=== PATIENT | female | born 1985 | race Hispanic/Latino ===

== ENCOUNTER 2017-08-05 21:46 | Emergency (ER) | payer OTHER ==
[2017-08-05 23:13] LABS: Bilirubin Negative (Negative); Blood, Urine Small (Negative); Clarity CLEAR (Clear); Glucose, Urine (Dipstick) Negative (Negative); Leukocyte Small (Negative); Nitrite Negative (Negative); Protein, Urine (Dipstick) Negative (Neg-Trace); Specific Gravity, Urine 1.015 (1.002-1.036); Urobilinogen 0.2 mg/dL (0.2-1.0)
[2017-08-05 23:16] LABS: Bacteria/HPF None Seen HPF (None Seen); Hyaline Casts/LPF 0-3 HYALINE CAST LPF (0-3 Hyaline); Pathc Cast-AUWi Flag 0.43 (0-2.49); Squamous Epithelial 0-3 HPF (0-3); WBC/HPF 21-50 HPF (0-3)
[2017-08-06 00:04] LABS: Pregnancy Test - Urine (BHCG) Negative (Negative); Pregu Control Background? CLEAR/WHITE (CLR/WHITE); Pregu Control Bar Appear? YES (CONTROL BAR); Specific Gravity 1.015 (1.002-1.036)
== END 2017-08-06 00:24 | disposition home or self-care (01) ==
LOC: ERS 21:46
DX: N30.00 Acute cystitis without hematuria (principal); F41.9 Anxiety disorder, unspecified
CPT/HCPCS: 81003; 81015; 81025; 87086; 99283

== ENCOUNTER 2018-02-27 09:26 | Outpatient (CLI) | payer MEDICAID ==
--- NOTE | 2018-02-27 12:41 | ULT ---
OB ULTRASOUND COMPLETE: History: 32-year-old female for size and dates. 21-week gestation . FINDINGS: The lower uterine segment is very poorly seen, probably related to an empty bladder. Single viable intrauterine fetus in breech presentation. The placenta is anterior. Amniotic fluid is within normal limits. heart rate 150 beats/minute. anatomy: Visualized brain, four chamber heart, three vessel cord, stomach, bladder, kidneys, spine and e xtremity regions are unremarkable. biometry: BPD 5.5 cm 22 weeks 6 days HC 20.1 cm 22 weeks 2 days AC 19.7 cm 24 weeks 3 days FL 4.0 cm 22 weeks 0 days IMPRESSION: Single viable intrauterine fetus at 23 weeks 1 day. NAIF 06-25-18. Estimated weight 680 grams. POS: [facility]
== END 2018-02-27 09:27 | disposition home or self-care (01) ==
LOC: BICULT 09:26
PROVIDERS: ATTEND Family Medicine
DX: Z34.92 Encounter for supervision of normal pregnancy, unspecified, second trimester (principal); Z3A.21 21 weeks gestation of pregnancy
CPT/HCPCS: 76805

== ENCOUNTER 2018-05-12 11:27 | Inpatient (IN) | payer OTHER ==
[2018-05-12 12:10] VITALS: BMI 28.1
--- NOTE | 2018-05-12 12:27 | PDOC.LDHP ---
Labor and Delivery H&P Chief complaint: other (ROMERO, blurred vision at 33 weeks) HPI: Patient of Dr Sahara Castillo Loc: L&D triage CC: ROMERO, blurred vision HPI: 33 yo at 33 weeks 5 days with above complaints. No VB, no HX PIH in past. Good FM. Possible GERD sxs Review of Systems: Completed and as per HPI Current gestational age (weeks): 33 (5 days) Dating criteria: last menstrual period Grav: 5 Para: 3 OB History Details: X 3 Current complications: none Abnormal US findings: No Current medications: pre-goldie vitamins Previous surgical history: none Allergies/Adverse Reactions: Allergies Allergy/AdvReac Type Severity Reaction Status Date / Time cephalexin [Cephalexin] Allergy Mild Rash Verified 05/12/18 12:10 - Physical Exam Vital signs reviewed and normal: yes (130/97;123/95) General: NAD Heart: RRR Lungs: CTAB Abdomen: gravid FHT: category 1 - Assessment 33 weeks 5 days possible PIH with symptoms. Due to EGA, we will do serial BPs, check UProtein to Cr ration; check labs. Ordered sono for EFW in case we need to deliver. Will need steroids for FLM if delivery a consideration. Tylenol for ROMERO.
[2018-05-12] MEDS ORDERED: Acetaminophen 500 MG TAB PO SCH (12:30)
[2018-05-12 13:05] LABS: #Eosinphils 0.1 thou/uL (0.0-0.7); #Lymphocytes 1.9 thou/uL (1.20-3.40); #Monocytes 0.6 thou/uL (0.11-0.59); %Basophils 0.5 % (0.0-1.0); %Eosinophils 0.9 % (0.0-10.0); %Lymphocytes 22.4 % (21.0-51.0); %Monocytes 6.5 % (0.0-10.0); %Neutrophils 69.7 % (42.0-75.0); Hemoglobin 12.5 g/dL (12.0-16.0); Mean Corpuscular HGB CONC 35.5 g/dL (32.0-36.0); Mean Corpuscular Hemoglobin 31.2 pg (27.0-31.0); Mean Corpuscular Volume 87.9 fL (78.0-98.0); Mean Platelet Volume 9.4 fL (7.4-10.4); Platelet Count 188 thou/uL (130-400); RBC Distribution Width 11.7 % (11.5-14.5); White Blood Cell (WBC) Count 8.5 thou/uL (4.8-10.8)
[2018-05-12] MEDS ORDERED: HYDROcodone/Acetaminophen 5/325 mg Tablet PO PRN ×2 (13:12)
[2018-05-12] MEDS ORDERED: NS / Oxytocin 40 units/1000ml 1,000 ML IV PRN (13:12)
[2018-05-12] MEDS ORDERED: Butorphanol Tartrate 1 MG/ML VIAL SLOW IVP PRN (13:12)
[2018-05-12] MEDS ORDERED: Promethazine HCl 25 MG/ML VIAL IM PRN (13:12)
[2018-05-12] MEDS ORDERED: Ibuprofen 800 MG TAB PO PRN (13:12)
[2018-05-12] MEDS ORDERED: Lidocaine 1% (PF) 30 ML VIAL SC PRN (13:12)
[2018-05-12] MEDS ORDERED: Calcium Gluc 4.6 MEQ/10 ML (100 MG/ML) SLOW IVP PRN (13:14)
[2018-05-12] MEDS ORDERED: NIFEdipine 10 MG CAP PO SCH (13:15)
[2018-05-12] MEDS ORDERED: Magnesium Sulfate 20 GM/WATER 500 ML BAG IVPB SCH (13:15)
[2018-05-12] MEDS ORDERED: Penicillin G Potassium 5 MILL.UNITS in Sodium Chloride 0.9% 100 ML IVPB SCH (13:15)
--- NOTE | 2018-05-12 13:34 | PDOC.EVN ---
Event Note - Event Note Event Note: H&P Dictated I will not give Mag Sulfate right now but will attempt BP control with procardia (10 mg ordered). Mag during induction, PCN during induction. D/W nurse charge rn and Dr Rees with Neonatology
[2018-05-12 13:40] LABS: ALT (SGPT) Less than 7 U/L (8-55); AST (SGOT) 14 U/L (5-34); Alkaline Phosphatase 127 U/L (40-150); Anion Gap 9 mmol/L (10-20); BUN (Urea Nitrogen) 9 mg/dL (7.0-18.7); Bilirubin, Total 0.6 mg/dL (0.2-1.2); Calc. Creatinine Clearance 147 mL/min (70-130); Calcium 8.6 mg/dL (7.8-10.44); Carbon Dioxide 24 mmol/L (22-29); Chloride 107 mmol/L (98-107); Estimated GFR-MDRD Greater than 90; Globulin 3.2 g/dL (2.4-3.5); Glucose 73 mg/dL (70-105); Potassium 4.2 mmol/L (3.5-5.1); Protein, Total 6.2 g/dL (6.0-8.3); Sodium 136 mmol/L (136-145)
--- NOTE | 2018-05-12 13:55 | PDOC.EVN ---
Event Note - Event Note Event Note: BP last 140/90s...following closely
[2018-05-12] MEDS: Lactated Ringer's 1,000 ML IV SCH (14:08)
[2018-05-12 14:30] LABS: Creatinine, Urine 205.17 mg/dL (47-110)
[2018-05-12 14:31] LABS: Hemoglobin 12.2 g/dL (12.0-16.0); Mean Corpuscular HGB CONC 34.5 g/dL (32.0-36.0); Mean Corpuscular Hemoglobin 30.1 pg (27.0-31.0); Mean Corpuscular Volume 87.4 fL (78.0-98.0); Mean Platelet Volume 9.2 fL (7.4-10.4); Platelet Count 210 thou/uL (130-400); RBC Distribution Width 11.7 % (11.5-14.5); Red Blood Cell (RBC) Count 4.05 mill/uL (4.20-5.40); White Blood Cell (WBC) Count 10.2 thou/uL (4.8-10.8)
--- NOTE | 2018-05-12 14:36 | PDOC.EVN ---
Event Note - Event Note Event Note: After oral nifedipine, maternal tachycardia noted to 120s...nifedipine effect. I will bive labetolol 10mg SIVP x 1 now for maternal HR affect. Cervical exam pending. Steroids pending
--- NOTE | 2018-05-12 14:41 | HP ---
TIME OF EVALUATION: 1323 hours. LOCATION: Labor and Delivery. CHIEF COMPLAINT: The patient here for headache and "blurred vision." This is the patient of Dr. Alexi Ramirez. Please note that this patient also has a hand written H and P in the physical chart as well. HISTORY OF PRESENT ILLNESS: In brief, this is a 33-year-old , 5, para 3 with 3 prior vaginal deliveries, this is with a new partner, who is currently at 33 weeks and 5 days, who comes to Labor and Delivery with complaint of headache and blurred vision today. She has good movement, no vaginal bleeding, and denies a history of high blood pressure in the past pregnancies or chronic hypertension. She states her blood pressures outside of are sometimes "borderline" but she does not know the number range. She has never taken medication. REVIEW OF SYSTEMS: Complete review of systems was done and is otherwise negative unless specified in the HPI. ALLERGIES: TO KEFLEX, WHICH GIVES HER A RASH. PAST MEDICAL HISTORY: Negative. PAST SURGICAL HISTORY: Noncontributory. SOCIAL HISTORY: Negative for alcohol, tobacco, or drug use. PHYSICAL EXAMINATION: VITAL SIGNS: The patient's blood pressures are 160/100 and then 170/100. Initial blood pressure was 138/97. GENERAL: Clinically, she is in no acute distress. PELVIC: Currently deferred as ultrasound was being performed when I was doing the interview. Ultrasound revealed the baby in a cephalic presentation with an anterior fundal placenta. Fluid is grossly normal. Estimated weight is about 2100 g. heart tones are in the 130s to 140s and they are category 1. Contractions are rare on tocodynamometer. ASSESSMENT: This is a 33-year-old, , G5, P3 with 3 prior vaginal deliveries (her second delivery was born , but her other two deliveries were born on time). She is currently at 33 weeks and 5 days with severe range of blood pressures and symptoms. PLAN: 1. I have ordered an ultrasound and the results are as above. 2. I have ordered a CBC, CMP, urine protein to creatinine ratio. 3. I have requested neonatology to come and evaluate the patient as she is under 34 weeks. 4. I have verbally talked to Dr. Sawant and given report myself. 5. Based on her blood pressure elevation of greater than 160, I have ordered nifedipine p.o. per ACOG protocol. 6. I have discussed with the patient the need for steroid injection for lung maturity in accordance with ACOG protocol. 7. I have discussed with the patient that we will administer steroids, give her antihypertensive medications to stabilize her pressure, and we will likely do an induction after 1 or 2 courses of steroids. 8. To prevent delay, I have chosen 12 hours of steroid administration instead of 24 hours. 9. We will continue with blood pressure medication for blood pressure control with the nifedipine protocol defaulting to the labetalol protocol, per ACOG, if necessary. 10. All questions answered and the patient is aware. 11. I have also ordered a TSH and a urine tox screen, although I do not anticipate illicit substances being a contributing factor here. The patient is aware that we have ordered a urine tox as part of our routine evaluation. Job ID: [id number]
[2018-05-12] MEDS ORDERED: Labetalol HCl 100 MG/20 ML VIAL SLOW IVP SCH (14:45)
[2018-05-12 15:21] LABS: Syphilis Antibody Nonreactive (Nonreactive); Syphilis Antibody Index 0.07 S/CO (<1.00 Non-Reactive)
--- NOTE | 2018-05-12 15:29 | ULT ---
OB ULTRASOUND: Comparison: None. History: female with induced hypertension. Technique: Multiplanar grayscale and color doppler images were obtained in a transabdominal ult rasound. FINDINGS: There is a single live intrauterine with heart rate of 145 beats/minute. A survey was performed which was limited secondary to the patient's age. The intracranial structures were difficu lt to visualize. The heart, stomach, kidneys, vocal cord, vocal cord insertion, spine, bladder, face, and extremities were normal. The fetus is in cephalic presentation. Weight of the fetus is 2117 gram s. Average age of the fetus based off today's examination is 33 weeks 6 days. The following measureme nts were taken: BPD 8.59 cm 34 weeks 4 days HC 30.87 cm 34 weeks 3 days AC 28.47 cm 32 weeks 3 days FL 6.43 cm 33 weeks 1 day LAURENCE is 9.8 cm which is normal. The placenta is anterior/fundal in location without evidence of placen ta previa. The cervical is normal in length. IMPRESSION: Single live intrauterine with estimated age of 33 weeks 6 days. POS: [facility]
[2018-05-12 15:34] LABS: HBSAg Index 0.19 S/CO (0-0.99); HIV (1/2) Antibody/Antigen Non-Reactive (NonReactive); HIV 1/2 INDEX 0.06 S/CO (<1.00); Hep B Surf Ag Non-Reactive S/CO (NonReactive); Thyroid Stimulating Hormone 0.8269 uIU/mL (0.35-4.94)
--- NOTE | 2018-05-12 15:37 | PDOC.EVN ---
Event Note - Event Note Event Note: Patient better after labetolol; cx //high
[2018-05-12] MEDS: Betamet Acet/Betamet Na Ph 30 MG/5 ML VIAL IM SCH (15:46)
[2018-05-12] MEDS: Penicillin G 2.5 MILL.units 2.5 MILL.UNITS in Premix Bag 1 BAG IVPB SCH ×2 (18:11→22:20)
--- NOTE | 2018-05-13 00:55 | PDOC.EVN ---
Event Note - Event Note Event Note: BPs nonsevere... second celestone will be today 05/13 at 1530 or so. Then allow for steroid benefit.
[2018-05-13] MEDS: Lactated Ringer's 1,000 ML IV SCH ×3 (01:00→23:37)
[2018-05-13] MEDS: Acetaminophen 500 MG TAB PO PRN (01:00)
--- NOTE | 2018-05-13 06:31 | PDOC.LDPN ---
Labor & Delivery Progress Note - Objective Abnormal vital signs: BPs nonsevere and range from 120/80s to 140/90s General: NAD Uterine fundus: non tender SVE: was 1 cm yesterday FHT: category 1 [place] contractions every: rare - Assessment (1) Preeclampsia Code(s): O14.90 - UNSPECIFIED PRE-ECLAMPSIA, UNSPECIFIED TRIMESTER Current Visit: Yes Status: Acute Plan: continue plan of care (second celestone will be today; will need PCN if labors. Mag for seizure prophylaxis in labr. For now, continue expectant care. Will likely have induction after steroid benefit (34 weeks induction). Currebtly 33 weeks 6 days)
[2018-05-13] MEDS: Betamet Acet/Betamet Na Ph 30 MG/5 ML VIAL IM SCH ×4 (06:48→23:44)
[2018-05-13] MEDS: Penicillin G 2.5 MILL.units 2.5 MILL.UNITS in Premix Bag 1 BAG IVPB SCH ×3 (06:49→23:37)
[2018-05-14] MEDS: Betamet Acet/Betamet Na Ph 30 MG/5 ML VIAL IM SCH (02:17)
[2018-05-14] MEDS ORDERED: Calcium Carbonate 500 MG ChewTAB PO SCH (02:30)
[2018-05-14] MEDS ORDERED: Mag-Al Plus 1200 MG/1200 MG/120 MG/30 ML UDCUP PO PRN (03:29)
--- NOTE | 2018-05-14 08:22 | PRG ---
DATE OF SERVICE: 05/14/2018 ANTEPARTUM PROGRESS NOTE SUBJECTIVE: The patient is a 33-year-old, G5, P3 female with an intrauterine at 34 weeks' gestation today, who was admitted with concerns of severe PIH. Her blood pressures on initial evaluation were in the severe range, but quickly we responded to medication intervention and has since remained in the mild range. She is now hospital day 3, status post steroids. The patient reports that she is feeling well this morning. She denies headache, chest pain, shortness of breath, or right upper quadrant pain. She is tolerating a diet. Lab work on initial evaluation was only significant with an intermediate mlstnkt-xe-qdqsjxmsnm ratio 0.23. OBJECTIVE: VITAL SIGNS: Have been reviewed and have had blood pressures in the mild range this morning and yesterday with the exception of a single severe pressure around 2 o'clock in 163 systolic. The remainder of her vital signs are all within normal limits. GENERAL: She appears to be in no acute distress. She is alert and oriented, cooperative and pleasant to interact with. LUNGS: Clear. ABDOMEN: Soft. EXTREMITIES: Nontender. Minimal edema. She has 2+ DTRs. No clonus. ASSESSMENT AND PLAN: The patient is hospital day 3 with PIH. The patient will continue in-house blood pressure observation for signs of worsening disease. She has not developed repetitive severe pressures at this time, but has had an isolated severe pressure yesterday and a few at the time of admission. Job ID: [id number]
--- NOTE | 2018-05-14 08:43 | PDOC.LDPN ---
Labor & Delivery Progress Note - Objective Vital signs reviewed and normal: yes Abnormal vital signs: BPs are 130-140/80s General: NAD Uterine fundus: non tender - Assessment (1) Preeclampsia Code(s): O14.90 - UNSPECIFIED PRE-ECLAMPSIA, UNSPECIFIED TRIMESTER Current Visit: Yes Status: Acute Plan: continue plan of care (Admitted 05/12 for preeclampsia with initially severe BPs, staeroids given and will be 48 hrs after first injection today at 1600. As BPs are not in severe range, we discussed (at bedside, along with Flakita - ras RN) that we can continue in-house observation for now as BPs have responded. EGA today is 34 weeks. If induced, would need Mag for SZ prophylaxis and PCN due to EGA)
[2018-05-14] MEDS: Famotidine 20 MG TAB PO SCH ×2 (09:04→21:01)
--- NOTE | 2018-05-14 12:51 | PDOC.EVN ---
Event Note - Event Note Event Note: 34 weeks Stable preeclampsia OK for floor transfer...steroid benefit will be this pm at 1600 Expectant management for now.
[2018-05-14] MEDS ORDERED: Docusate 100 MG CAP PO PRN (12:54)
--- NOTE | 2018-05-15 00:30 | PDOC.EVN ---
Event Note - Event Note Event Note: HD 3 Admitted 05/12/18 EGA: 34 weeks 1 day S/P Celestone S. Doing well, no complaints. Good FM O. BPs have been normal with max systolic 136 yesterday 05/14 at 1200 Physical: NAD Ut Soft, NT A/P: PIH at 34 weeks 1 day with non-severe BPs currently. We will monitor in- house today. If BPs stay in mild range we may DC home tomorrow 05/16/18 with frequent BP checks.
--- NOTE | 2018-05-15 08:05 | PDOC.EVN ---
Event Note - Event Note Event Note: BPs reviewed with oncoming ...flako and selvin. Prob dsc tomorrow
[2018-05-15] MEDS: Famotidine 20 MG TAB PO SCH ×2 (09:46→21:06)
[2018-05-15] MEDS: Prenatal Vitamin 1 TAB PO SCH (09:46)
--- NOTE | 2018-05-15 19:26 | PRG ---
DATE OF SERVICE: 05/15/2018 SUBJECTIVE: This is a 33-year-old white Maltese female, G5, P3, who presented with headache, blurred vision, and swelling. She was admitted for [facility]. She was placed at bedrest. Since admission, she has received steroids. She also had an ultrasound with a BPP of 8/8 and an NST 2/2. She has lost significant weight since she has been here as well as her leg swelling has completely resolved. Her blood pressures have also returned to baseline. OBJECTIVE: VITAL SIGNS: Temperature 97.9, pulse 53, respirations 24, blood pressure 133/66 and 128/59. HEART: Regular rate and rhythm. LUNGS: Clear. ABDOMEN: Soft. EXTREMITIES: With no edema. 1+ DTRs. ASSESSMENT: 1. 34 and 1 weeks intrauterine . 2. induced hypertension with urine protein creatinine ratio 0.23. 3. Celestone given on 05/12 and 05/13. PLAN: 1. Possible discharge in a.m. 2. Followup appointment and twice weekly. 3. 37-week induction if the patient's blood pressure remains stable. 4. Mag therapy for seizure prophylaxis at delivery. 5. Precautions given to the patient to return to the office or to the hospital if symptoms return. Job ID: [id number]
[2018-05-15] MEDS: Acetaminophen 500 MG TAB PO PRN (19:29)
[2018-05-15] MEDS ORDERED: Sodium Chloride 0.9% 20 ML ONE (19:30)
[2018-05-16] MEDS: Famotidine 20 MG TAB PO SCH (09:04)
[2018-05-16] MEDS: Prenatal Vitamin 1 TAB PO SCH (09:04)
[2018-05-16] MEDS ORDERED: Sodium Chloride 0.9% 500 ML IV SCH (11:45)
[2018-05-16 11:53] VITALS: BP 137/77; TEMP 98
[2018-05-16] MEDS: Acetaminophen 500 MG TAB PO PRN (12:22)
--- NOTE | 2018-05-16 14:55 | PRG ---
DATE OF SERVICE: 05/16/2018 SUBJECTIVE: Last night, the patient had irregular contractions, which kept her awake. This morning, she is retired. She had a headache earlier, but none now. She has had no appetite until now. OBJECTIVE: VITAL SIGNS: Blood pressure 145/66, temperature 97.8, pulse 53, respirations 20, pulse ox 96. HEART: Regular rate and rhythm. LUNGS: Clear. ABDOMEN: Soft. EXTREMITIES: No edema. DTRs 1+. LABORATORY DATA: None. ASSESSMENT: 1. 34 weeks and 2 days intrauterine . 2. -induced hypertension with a urine ckmtakc-tn-miwdepzvvy ratio 2.23. 3. Celestone given on 05/12 and 05/13. PLAN: 1. The patient is eating breakfast at this time. 2. Encourage hydration. 3. NST today. 4. If the patient feels better this afternoon, plan to discharge home. Job ID: [id number]
== END 2018-05-16 14:45 | disposition home or self-care (01) | DRG 833 ==
LOC: L&D/OP 11:27 → L&D 18:19 → 3SW 05-14 17:03
PROVIDERS: ADMIT Obstetrics & Gynecology; ATTEND Family Medicine
DX: O14.13 Severe pre-eclampsia, third trimester (principal); Z3A.33 33 weeks gestation of pregnancy
CPT/HCPCS: 36415; 76805; 80053; 82570; 84156; 84443; 85025; 86780; 86850; 86900; 86901; 87340; 87389; 99285

== ENCOUNTER 2018-05-16 21:58 | Inpatient (IN) | payer OTHER ==
[~2018-05-16 21:58] MED LIST: Bupivacaine PF 0.5% 30 ML VIAL ONE
[2018-05-16 22:24] VITALS: BMI 28.1
[2018-05-16] MEDS ORDERED: Acetaminophen 500 MG TAB PO PRN (22:26)
[2018-05-16] MEDS ORDERED: NS / Oxytocin 40 units/1000ml 1,000 ML IV PRN (22:26)
[2018-05-16] MEDS ORDERED: Promethazine HCl 25 MG/ML VIAL IM PRN (22:26)
[2018-05-16] MEDS ORDERED: Lidocaine 1% (PF) 30 ML VIAL SC PRN (22:26)
[2018-05-16] MEDS ORDERED: Butorphanol Tartrate 1 MG/ML VIAL SLOW IVP PRN (22:26)
[2018-05-16] MEDS ORDERED: Ondansetron PF 4 MG/2 ML Vial IVP PRN (22:26)
[2018-05-16] MEDS ORDERED: Labetalol HCl 100 MG/20 ML VIAL SLOW IVP PRN (22:40)
[2018-05-16] MEDS: Lactated Ringer's 1,000 ML IV SCH (22:50)
--- NOTE | 2018-05-16 23:05 | PDOC.LDHP ---
Labor and Delivery H&P Chief complaint: other (elevated BPs and headache) HPI: 33 y/o at 34w2d who was discharged home today returns with severe range BPs at home and ROMERO not improved with rest and Tylenol. Denies VB, LOF, ctx, or other concerns. +FM ROS neg for HEENT, cv, pulm, gi, gu, neuro, psych, skin, musculoskeletal or constitutional symptoms other than mentioned above. Current complications: gestational hypertension Past Medical History: None Current medications: pre- vitamins Previous surgical history: none Allergies/Adverse Reactions: Allergies Allergy/AdvReac Type Severity Reaction Status Date / Time cephalexin [Cephalexin] Allergy Mild Rash Verified 05/12/18 12:10 nifedipine [From Procardia] Allergy Mild Nausea Verified 05/16/18 22:18 Social history: none - Physical Exam Abnormal vital signs: Severe range BPs General: NAD, resting Lungs: nonlabored breathing Abdomen: gravid Extremeties: no edema (reflexes 2+) FHT: category 1 (130s, mod variability, + accels, no decels) [place] contractions every: none - Assessment Severe range BPs. No dx of preeclampsia at this point. - Plan -: Discussed patient Dr. Ramirez (her OB). Will admit for hydration, bed rest, treat headache and BPs. Has already received celestone on last admission. Continue to monitor.
[2018-05-16 23:23] LABS: Hemoglobin 11.3 g/dL (12.0-16.0); Mean Corpuscular HGB CONC 35.7 g/dL (32.0-36.0); Mean Corpuscular Hemoglobin 31.1 pg (27.0-31.0); Mean Platelet Volume 10.3 fL (7.4-10.4); Platelet Count 168 thou/uL (130-400); RBC Distribution Width 11.8 % (11.5-14.5); Red Blood Cell (RBC) Count 3.63 mill/uL (4.20-5.40); White Blood Cell (WBC) Count 9.6 thou/uL (4.8-10.8)
[2018-05-16] MEDS ORDERED: Metoclopramide HCl 10 MG/2 ML VIAL IVP PRN (23:29)
[2018-05-16] MEDS ORDERED: diphenhydrAMINE 50 MG/ML VIAL IVP PRN (23:30)
[2018-05-16 23:37] LABS: ALT (SGPT) 14 U/L (8-55); AST (SGOT) 18 U/L (5-34); Alkaline Phosphatase 126 U/L (40-150); Anion Gap 12 mmol/L (10-20); BUN (Urea Nitrogen) 11 mg/dL (7.0-18.7); Bilirubin, Total 0.4 mg/dL (0.2-1.2); Calc. Creatinine Clearance 142 mL/min (70-130); Calcium 8.8 mg/dL (7.8-10.44); Carbon Dioxide 22 mmol/L (22-29); Chloride 107 mmol/L (98-107); Estimated GFR-MDRD Greater than 90; Globulin 2.6 g/dL (2.4-3.5); Glucose 88 mg/dL (70-105); Protein, Total 5.6 g/dL (6.0-8.3); Sodium 137 mmol/L (136-145)
[2018-05-16] MEDS ORDERED: Calcium Gluc 4.6 MEQ/10 ML (100 MG/ML) SLOW IVP PRN (23:37)
[2018-05-16 23:40] LABS: Creatinine, Urine 36.65 mg/dL (47-110)
[2018-05-16] MEDS ORDERED: Magnesium Sulfate 20 gm/500 ml 20 GM/500 ML BAG ONE (23:41)
[2018-05-16] MEDS ORDERED: Magnesium Sulfate 20 GM/WATER 500 ML BAG IVPB SCH (23:45)
--- NOTE | 2018-05-16 23:50 | PDOC.EVN ---
Event Note - Event Note Event Note: Protein creatinine ratio 0.52 giving diagnosis of preeclampsia with severe features. Will start cytotec induction and magnesium.
[2018-05-16 23:54] LABS: Syphilis Antibody Nonreactive (Nonreactive); Syphilis Antibody Index 0.06 S/CO (<1.00 Non-Reactive)
[2018-05-16] MEDS: Magnesium Sulfate 20 gm/500 ml 20 GM/500 ML BAG IVPB SCH (23:54)
[2018-05-17] MEDS ORDERED: Misoprostol 100 MCG TAB VAG SCH
[2018-05-17 00:12] LABS: HBSAg Index 0.18 S/CO (0-0.99); Hep B Surf Ag Non-Reactive S/CO (NonReactive)
[2018-05-17] MEDS ORDERED: Penicillin G Potassium 5 MILL.UNITS in Sodium Chloride 0.9% 100 ML IVPB SCH (00:15)
[2018-05-17] MEDS ORDERED: NS w/ Oxytocin 10 units 500 ML IV SCH (00:15)
[2018-05-17] MEDS ORDERED: Fentanyl 4 mcg/Bup 0.1% Cadd 100 ML ONE (00:27)
[2018-05-17] MEDS ORDERED: Promethazine HCl 25 MG/ML VIAL IM PRN (01:56)
[2018-05-17] MEDS ORDERED: Acetaminophen 325 MG TAB PO PRN (01:56)
[2018-05-17] MEDS ORDERED: diphenhydrAMINE 50 MG/ML VIAL IVP PRN (01:56)
[2018-05-17] MEDS ORDERED: Naloxone HCl 0.4 mg/ml Vial IVP PRN ×2 (01:56)
[2018-05-17] MEDS ORDERED: ePHEDrine/0.9% NaCl/PF SYRINGE 50 mg/10 ml SLOW IVP PRN (01:56)
[2018-05-17] MEDS ORDERED: Ondansetron PF 4 MG/2 ML Vial IVP PRN (01:56)
[2018-05-17] MEDS ORDERED: Eucerin (Mineral Oil/Petrolatum,White) 30 gm Jar TOP PRN (01:56)
[2018-05-17] MEDS ORDERED: Lactated Ringer's 500 ML IV PRN (01:56)
[2018-05-17] MEDS ORDERED: Communication Order-Pharmacy FS SCH (02:00)
[2018-05-17] MEDS ORDERED: Fentanyl 4 mcg/Bupivacaine 0.1% Cassette 100 ML EPIDURAL SCH (02:00)
[2018-05-17] MEDS: Penicillin G 2.5 MILL.units 2.5 MILL.UNITS in Premix Bag 1 BAG IVPB SCH ×4 (05:59→20:42)
[2018-05-17] MEDS: Magnesium Sulfate 20 gm/500 ml 20 GM/500 ML BAG IVPB SCH (08:00)
[2018-05-17] MEDS ORDERED: Calcium Gluconate 4.6 MEQ in Sodium Chloride 0.9% 100 ML IVPB PRN (09:23)
[2018-05-17 09:30] LABS: Actual Bicarbonate (HCO3a) 23.7 mEq/L (22-28); Base Excess (BEa) -0.9 mEq/L (-2.0 to +3.0)
--- NOTE | 2018-05-17 10:05 | HP ---
HISTORY OF PRESENT ILLNESS: This is a 33-year-old female, G5, P3-0-1-3 at 34 weeks and 3 days with EDC of 06/25/2018, who presents with headache and elevated blood pressures. The patient is at 34 weeks and 3 days, recently admitted with early PIH, was hospitalized for approximately 5 days. Her blood pressures returned to normal. She was given Celestone 2 doses 24 hours apart on the and . Her headache resolved. She is doing well. Her blood pressure returned to normal, and she was discharged early on the day of admission. She returned with headache and was found to have slightly elevated blood pressures. She was then admitted and her urine protein creatinine ratio was 0.5, and therefore she has been induced. PAST MEDICAL HISTORY: History of kidney infections and allergies. PAST SURGICAL HISTORY: Appendectomy. ALLERGIES: TO KEFLEX. FAMILY HISTORY: Maternal grandfather with lung cancer, maternal grandfather with prostate cancer. SOCIAL HISTORY: She is a nonsmoker. She is . She has two kids. This is a new father. REVIEW OF SYSTEMS: As above. PHYSICAL EXAMINATION: VITAL SIGNS: Blood pressure 140/87. HEENT: Clear. HEART: Regular rate and rhythm. LUNGS: Clear. ABDOMEN: Gravid. Cervix 7 cm, 100%, 0 station. EXTREMITIES: 2+ DTRs upper extremities, 1+ lower extremities. LABORATORY DATA: One-hour GCT 143. GC chlamydia negative. HPV negative. Paps were normal. TSH normal. HIV negative. Hepatitis B negative. RPR negative. Rubella immune. O positive blood type. White count 9.6, H and H 11 and 31. Electrolytes normal. Creatinine 0.62. ASSESSMENT: 1. 34 weeks and 3 days intrauterine . 2. PIH with severe features. 3. History of chlamydia, treated. PLAN: 1. Pitocin 14 units per minute. Cervix presently at 7 cm dilatation. 2. Continue Mag sulfate at 2 g/hour. 3. Anticipate vaginal delivery. Job ID: [id number]
--- NOTE | 2018-05-17 11:26 | DN ---
DATE OF PROCEDURE: 05/16/2018 PREOPERATIVE DIAGNOSIS: A 34-3/7 intrauterine . POSTOPERATIVE DIAGNOSIS: A 34-3/7 intrauterine . PROCEDURE PERFORMED: Spontaneous vaginal delivery. DESCRIPTION OF PROCEDURE: This 33-year-old female, G5, P3, taken to the delivery room, complaining of pushing. Prepped and draped sterilely. Delivered a baby boy, which breathing and cried vigorously upon delivery. The cord was clamped and cut. Bimal team was present at delivery. Baby did quite well. Cord blood gases were sent. Placenta was sent to Pathology. Delivery of placenta intact. Minimal blood loss approximately 100 mL. No lacerations present. Mother and baby did very well. Job ID: [id number]
[2018-05-17] MEDS: HYDROcodone/Acetaminophen 7.5/325 mg Tablet PO PRN ×3 (14:23→23:41)
[2018-05-17] MEDS: Lactated Ringer's 1,000 ML IV SCH ×2 (20:40→23:00)
--- NOTE | 2018-05-17 21:33 | PRG ---
DATE OF SERVICE: 05/17/2018 SUBJECTIVE: The patient is doing well at this time. No complaints of nausea, vomiting, or headache. She does complain of pain at the epidural site. OBJECTIVE: VITAL SIGNS: Blood pressure 135/85, afebrile. HEENT: Clear. HEART: Regular rate and rhythm. LUNGS: Clear. ABDOMEN: Soft. EXTREMITIES: DTRs 1+. Urine output greater than 60 mL/h. ASSESSMENT: 1. day #0, status post spontaneous vaginal delivery at 35 . 2. Back pain at the epidural site. The site looks intact. No hematoma. No local tenderness to palpation. PLAN: 1. Continue magnesium sulfate for a total of 24 hours. 2. Continue to monitor respirations, DTR, urine output. 3. Baby is doing well at this time. Has not been on oxygen. Job ID: [id number]
[2018-05-18] MEDS: Penicillin G 2.5 MILL.units 2.5 MILL.UNITS in Premix Bag 1 BAG IVPB SCH ×2 (03:13→05:35)
[2018-05-18] MEDS: Magnesium Sulfate 20 gm/500 ml 20 GM/500 ML BAG IVPB SCH (03:37)
[2018-05-18] MEDS: HYDROcodone/Acetaminophen 7.5/325 mg Tablet PO PRN ×2 (05:26→15:37)
[2018-05-18] MEDS: Ibuprofen 800 MG TAB PO SCH ×2 (08:55→17:15)
--- NOTE | 2018-05-18 12:10 | PRG ---
DATE OF SERVICE: 05/18/2018 SUBJECTIVE: The patient complains still of a headache since delivery. She also complains of marked low back pain at the epidural site. No complaints of shortness of breath, chest pain, nausea, or vomiting. OBJECTIVE: VITAL SIGNS: Temp 98.0, pulse 80, respirations 20, blood pressure 120/80. HEENT: Clear. NECK: Supple. HEART: Regular rate and rhythm. LUNGS: Clear. ABDOMEN: Soft. EXTREMITIES: DTRs 1+. LABORATORY DATA: Mag level yesterday 5.3. ASSESSMENT: 1. day #1, status post vaginal delivery. 2. -induced hypertension with severe features with blood pressures improving. 3. Headache, questionable spinal headache. Anesthesia to assess. PLAN: 1. Anesthesia to assess for spinal headache. 2. Discontinue Mag. 3. Begin Motrin q.8. 4. If the patient's symptoms improve, plan to transfer to . Job ID: [id number]
[2018-05-18] MEDS ORDERED: Atropine Sulfate 1 mg/10 ml Syringe IVP SCH (13:00)
[2018-05-18] MEDS: Lactated Ringer's 1,000 ML IV SCH (13:32)
[2018-05-18] MEDS ORDERED: Bisacodyl 10 MG SUPP PR PRN (17:47)
[2018-05-18] MEDS ORDERED: Adacel (T-DAP) 0.5 ML SYRINGE IM ONE (17:47)
[2018-05-18] MEDS ORDERED: Milk Of Magnesia 30 ML UDCUP PO PRN (17:47)
[2018-05-18] MEDS ORDERED: Lanolin Ointment 7 GM TUBE TOP PRN (17:47)
[2018-05-18] MEDS ORDERED: NS / Oxytocin 40 units/1000ml 1,000 ML IV SCH (17:47)
[2018-05-18] MEDS: HYDROcodone/Acetaminophen 5/325 mg Tablet PO PRN (18:30)
[2018-05-18] MEDS: Ferrous Sulfate 325 MG TAB PO SCH (18:32)
[2018-05-18] MEDS: Prenatal Vitamin 1 TAB PO SCH (18:32)
[2018-05-18] MEDS: Docusate Calcium (SURFAK) 240 MG CAP PO SCH ×2 (18:32→21:23)
[2018-05-18] MEDS ORDERED: Labetalol 100 MG TAB PO PRN (18:46)
[2018-05-18] MEDS ORDERED: HYDROcodone/Acetaminophen 5/325 mg Tablet PO PRN (18:46)
[2018-05-18] MEDS ORDERED: Labetalol HCl 100 MG/20 ML VIAL SLOW IVP PRN (20:39)
[2018-05-19] MEDS: Ibuprofen 800 MG TAB PO SCH ×2 (02:04→14:29)
[2018-05-19 06:02] LABS: Hemoglobin 10.8 g/dL (12.0-16.0); Mean Corpuscular HGB CONC 34.5 g/dL (32.0-36.0); Mean Corpuscular Hemoglobin 30.4 pg (27.0-31.0); Mean Corpuscular Volume 88.1 fL (78.0-98.0); Mean Platelet Volume 9.1 fL (7.4-10.4); Platelet Count 143 thou/uL (130-400); RBC Distribution Width 11.9 % (11.5-14.5); Red Blood Cell (RBC) Count 3.56 mill/uL (4.20-5.40); White Blood Cell (WBC) Count 10.6 thou/uL (4.8-10.8)
[2018-05-19] MEDS: Ferrous Sulfate 325 MG TAB PO SCH ×2 (07:41→16:00)
[2018-05-19] MEDS ORDERED: Bupivacaine PF 0.5% 30 ML VIAL ONE (08:25)
[2018-05-19] MEDS ORDERED: Midazolam HCl 2 mg/2 ml Vial ONE (08:54)
[2018-05-19] MEDS ORDERED: Lidocaine 2% Jelly 5 ML TUBE ONE (08:58)
[2018-05-19] MEDS ORDERED: Glycopyrrolate 0.2 MG/ML 5 ML SYRINGE ONE (09:19)
[2018-05-19] MEDS ORDERED: Atropine Sulfate 1 mg/10 ml Syringe ONE ×2 (09:21→19:35)
[2018-05-19] MEDS: Penicillin G 2.5 MILL.units 2.5 MILL.UNITS in Premix Bag 1 BAG IVPB SCH (09:30)
[2018-05-19] MEDS: Lactated Ringer's 1,000 ML IV SCH (09:30)
[2018-05-19] MEDS ORDERED: Sodium Chloride 0.9% 10 ML ONE ×2 (09:32→19:43)
[2018-05-19] MEDS ORDERED: Atropine Sulfate 0.4 mg/1 ml Vial ONE ×2 (12:37→19:38)
--- NOTE | 2018-05-19 14:13 | PRG ---
DATE OF SERVICE: 05/19/2018 SUBJECTIVE: The patient still with a severe headache. She is being taken down to the OR at this time to receive a blood patch. Blood pressures have been spiking occasionally throughout the night. OBJECTIVE: VITAL SIGNS: The patient's blood pressure this morning 158/94, temperature 97.9, pulse 63, respirations 20, and O2 saturation 99. HEART: Regular rate and rhythm. LUNGS: Clear. ABDOMEN: Soft. EXTREMITIES: DTRs are 1+. LABORATORY DATA: Hemoglobin and hematocrit went from 11 and 31 to 10 and 31, platelet of 143. ASSESSMENT: 1. day #1 status spontaneous vaginal delivery. 2. induced hypertension with severe features with completion of 24 hours of Mag . 3. Spinal headache. PLAN: 1. Continue pain medications. 2. Blood patch this a.m. 3. Hopefully, the patient's symptoms will improve dramatically. Job ID: [id number]
[2018-05-19] MEDS: Docusate Calcium (SURFAK) 240 MG CAP PO SCH (14:29)
[2018-05-19] MEDS: Prenatal Vitamin 1 TAB PO SCH (14:30)
[2018-05-19] MEDS: HYDROcodone/Acetaminophen 5/325 mg Tablet PO PRN ×2 (15:22)
[2018-05-19] MEDS ORDERED: Metoprolol Tartrate 25 MG TAB PO SCH (18:00)
[2018-05-19] MEDS ORDERED: Sodium Chloride 0.9% 500 ML IV SCH (21:00)
[2018-05-19] MEDS ORDERED: ALPRAZolam 0.25 MG TAB PO SCH (21:00)
[2018-05-19] MEDS ORDERED: ALPRAZolam 0.5 MG TAB PO SCH (21:00)
[2018-05-20] MEDS: Ibuprofen 800 MG TAB PO SCH ×4 (00:10→16:52)
[2018-05-20] MEDS: Docusate Calcium (SURFAK) 240 MG CAP PO SCH ×3 (00:11→21:16)
[2018-05-20] MEDS: HYDROcodone/Acetaminophen 5/325 mg Tablet PO PRN ×4 (00:47→22:57)
[2018-05-20] MEDS: Ferrous Sulfate 325 MG TAB PO SCH ×2 (07:33→15:55)
[2018-05-20] MEDS: Prenatal Vitamin 1 TAB PO SCH (10:19)
[2018-05-20] MEDS: Metoprolol Tartrate 25 MG TAB PO SCH ×2 (10:20→21:16)
--- NOTE | 2018-05-20 18:45 | PRG ---
DATE OF SERVICE: 05/20/2018 SUBJECTIVE: The patient is feeling much better this morning. She still has a slight headache, but significantly improved. No nausea, vomiting, or chest pain. She is also ambulatory today. OBJECTIVE: VITAL SIGNS: Temperature 97.8, pulse 70, respirations 14, pulse ox 98% on room air, blood pressure 133/75 and 128/79. GENERAL: No acute distress at this time. HEENT: Clear. HEART: Regular rhythm. LUNGS: Clear. ABDOMEN: Soft. EXTREMITIES: No edema. LABORATORY DATA: None. ASSESSMENT: 1. Spinal headache, significantly improved, status post neostigmine/Atropine injection. 2. -induced hypertension with severe features. Rule out chronic hypertension. 3. day #2. PLAN: 1. Continue metoprolol 25 p.o. b.i.d. 2. The patient is stable at this time. If her headache returns, consider blood patch. 3. Hopefully, can discharge home tomorrow. Job ID: [id number]
[2018-05-21] MEDS: Ibuprofen 800 MG TAB PO SCH ×3 (01:23→17:05)
[2018-05-21] MEDS: HYDROcodone/Acetaminophen 5/325 mg Tablet PO PRN ×3 (05:29→17:05)
[2018-05-21] MEDS: Ferrous Sulfate 325 MG TAB PO SCH ×2 (08:12→17:13)
[2018-05-21 08:32] VITALS: BP 139/81; TEMP 98
[2018-05-21] MEDS: Metoprolol Tartrate 25 MG TAB PO SCH (09:54)
[2018-05-21] MEDS: Prenatal Vitamin 1 TAB PO SCH (09:54)
[2018-05-21] MEDS: Docusate Calcium (SURFAK) 240 MG CAP PO SCH (09:54)
--- NOTE | 2018-05-22 07:00 | DIS ---
DATE OF ADMISSION: 05/16/2018 DATE OF DISCHARGE: 05/21/2018 DISCHARGE DIAGNOSES: 1. 34-week and 3-day intrauterine . 2. -induced hypertension with severe features. 3. Spinal headache treated with needlestick meat neostigmine/atropine. 4. Rule out chronic hypertension. DISCHARGE MEDICATIONS: 1. Metoprolol 25 p.o. b.i.d. 2. Iron 325 daily. 3. vitamin 1 p.o. daily. 4. Tylenol No.3, #30, 1 to 2 p.o. q.4 hours p.r.n. pain. FOLLOWUP: Follow up in one week with Dr. Alexi Ramirez. BRIEF HISTORY: This is a 33-year-old female, G5, P3, at 33 weeks and 3 days, who was admitted with headaches and elevated blood pressure. She had been previously hospitalized for PIH, did well, was discharged home, but returned immediately. given Celestone 2 doses 24 hours apart. Her headaches had resolved, but then returned and she was readmitted to the hospital. HOSPITAL COURSE: A repeat urine protein creatinine ratio was 0.5 increased from 0.23. The patient had a persistent headache and elevated blood pressure. It was then decided to proceed with induction. The patient underwent a Cytotec and Pitocin induction. She did well, had a normal spontaneous vaginal delivery of a 34-week . Bimal team was present and baby is presently under the care of the Bimal Team. Baby is doing well. Mother did receive neostigmine/atropine treatment for her spinal headache. Her symptoms have improved dramatically, but she still is with headache, but tolerable. The patient will be discharged at this time. She will be sent home on metoprolol 25 b.i.d., Tylenol No.3 for pain, vitamins and iron. She will follow up in the office this week. She has been given the number of Anesthesia if her headaches return. Job ID: [id number]
== END 2018-05-21 18:07 | disposition home or self-care (01) | DRG 807 ==
LOC: L&D/OP 21:58 → L&D 22:56 → 3SW 05-18 18:34
PROVIDERS: ADMIT Family Medicine; ATTEND Family Medicine
PROC: 10E0XZZ Delivery of Products of Conception, External Approach (ICD-10-PCS; principal; 2018-05-17)
PROC: 10907ZC Drainage of Amniotic Fluid, Therapeutic from Products of Conception, Via Natural or Artificial Opening (ICD-10-PCS; 2018-05-17)
PROC: 3E033VJ Introduction of Other Hormone into Peripheral Vein, Percutaneous Approach (ICD-10-PCS; 2018-05-17)
DX: O13.4 Gestational [pregnancy-induced] hypertension without significant proteinuria, complicating childbirth (principal); Z37.0 Single live birth; O74.5 Spinal and epidural anesthesia-induced headache during labor and delivery; Z3A.34 34 weeks gestation of pregnancy; Z88.1 Allergy status to other antibiotic agents
CPT/HCPCS: 36415; 51702; 62272; 80053; 82570; 82805; 83735; 84156; 85027; 86780; 86850; 86900; 86901; 87340; 88307; 90715; 99285; J0461; J2001; J2250; J2540; J3475; J3490; J7050; S0020

== ENCOUNTER 2018-05-23 13:21 | Inpatient (IN) | payer OTHER ==
[2018-05-23 14:05] LABS: #Eosinphils 0.1 thou/uL (0.0-0.7); #Lymphocytes 2.2 thou/uL (1.20-3.40); #Monocytes 0.6 thou/uL (0.11-0.59); #Neutrophils 5.9 thou/uL (1.40-6.50); %Basophils 0.4 % (0.0-1.0); %Eosinophils 1.4 % (0.0-10.0); %Lymphocytes 25.1 % (21.0-51.0); %Monocytes 6.6 % (0.0-10.0); %Neutrophils 66.6 % (42.0-75.0); Hemoglobin 12.1 g/dL (12.0-16.0); Mean Corpuscular HGB CONC 34.5 g/dL (32.0-36.0); Mean Corpuscular Hemoglobin 30.5 pg (27.0-31.0); Mean Corpuscular Volume 88.3 fL (78.0-98.0); Mean Platelet Volume 7.2 fL (7.4-10.4); Platelet Count 269 thou/uL (130-400); RBC Distribution Width 12.3 % (11.5-14.5); Red Blood Cell (RBC) Count 3.99 mill/uL (4.20-5.40); White Blood Cell (WBC) Count 8.8 thou/uL (4.8-10.8)
[2018-05-23 14:12] LABS: INR-International Normal Ratio 0.9
[2018-05-23 14:24] LABS: ALT (SGPT) 28 U/L (8-55); AST (SGOT) 18 U/L (5-34); Albumin 3.6 g/dL (3.5-5.0); Alkaline Phosphatase 108 U/L (40-150); Anion Gap 14 mmol/L (10-20); BUN (Urea Nitrogen) 16 mg/dL (7.0-18.7); Bilirubin, Total 0.6 mg/dL (0.2-1.2); Calc. Creatinine Clearance 0 mL/min (70-130); Calcium 9.3 mg/dL (7.8-10.44); Carbon Dioxide 24 mmol/L (22-29); Chloride 105 mmol/L (98-107); Estimated GFR-MDRD Greater than 90; Globulin 3.2 g/dL (2.4-3.5); Glucose 87 mg/dL (70-105); Protein, Total 6.8 g/dL (6.0-8.3); Sodium 139 mmol/L (136-145); Uric Acid 6.7 mg/dL (2.6-6.0)
[2018-05-23] MEDS ORDERED: Furosemide 40 MG/4 ML VIAL ONE (14:28)
[2018-05-23] MEDS ORDERED: hydrALAZINE 20 MG/ML VIAL ONE (14:28)
--- NOTE | 2018-05-23 14:37 | CT ---
NONCONTRAST CT HEAD: 05/23/2018 HISTORY: Headache post premature vaginal delivery. History of pre-eclampsia. COMPARISON: 06/03/2012 FINDINGS: There is no evidence of a hemorrhage, acute infarction, mass effect, or midline shift. The ventricul ar system is normal in size, shape, and position. There has been no interval change from the prior e xam. IMPRESSION: No acute intracranial abnormalities demonstrated. POS: [facility]
[2018-05-23 14:55] LABS: Bilirubin Moderate (Negative); Blood, Urine Large (Negative); Clarity CLOUDY (Clear); Glucose, Urine (Dipstick) Negative (Negative); Leukocyte Moderate (Negative); Nitrite Negative (Negative); Protein, Urine (Dipstick) 100 mg/dL (Neg-Trace); Specific Gravity, Urine 1.038 (1.002-1.036)
[2018-05-23 14:57] LABS: Bacteria/HPF 3+ HPF (None Seen); Hyaline Casts/LPF 0-3 HYALINE CAST LPF (0-3 Hyaline); Pathc Cast-AUWi Flag 0.29 (0-2.49); RBC/HPF GREATER THAN 50-TNTC HPF (0-3); Squamous Epithelial 0-3 HPF (0-3)
[2018-05-23] MEDS ORDERED: hydrALAZINE 20 MG/ML VIAL SLOW IVP SCH (16:15)
[2018-05-23] MEDS ORDERED: Zolpidem Tartrate 5 MG TAB PO PRN (16:16)
[2018-05-23] MEDS: Ibuprofen 800 MG TAB PO PRN (16:27)
[2018-05-23] MEDS ORDERED: Labetalol 100 MG TAB PO SCH ×2 (16:30→21:00)
[2018-05-23 17:56] VITALS: BMI 27.3
[2018-05-23] MEDS ORDERED: Morphine 4 MG/ML VIAL SLOW IVP SCH (19:15)
[2018-05-23] MEDS ORDERED: Sodium Chloride 0.9% 10 ML ONE (19:16)
[2018-05-23] MEDS: Ondansetron PF 4 MG/2 ML Vial IVP PRN (19:24)
[2018-05-23] MEDS ORDERED: Morphine 4 MG/ML VIAL ONE (22:01)
[2018-05-23] MEDS ORDERED: Morphine 2 MG/ML SYRINGE SLOW IVP SCH (23:59)
[2018-05-24] MEDS ORDERED: Sodium Chloride 0.9% 10 ML ONE (00:48)
[2018-05-24] MEDS: Ondansetron PF 4 MG/2 ML Vial IVP PRN (00:55)
--- NOTE | 2018-05-24 02:15 | HP ---
CHIEF COMPLAINT: Headache and severe range of blood pressures in the . PRIMARY DIALS INSPECTOR: Alexi Ramirez MD HISTORY OF PRESENT ILLNESS: The patient is a 33-year-old, day #8, status post a delivery complicated by severe preeclampsia. The patient reports since being discharged to home, the patient has had a persistent headache and severe range blood pressures. The patient was discharged home after magnesium for seizure prophylaxis and institution of beta blockers and takes 25 mg of metoprolol two times a day. The patient reports that prior to discharge home, there was some concern that she had a spinal headache which was treated in a way different than a blood patch. This had some temporary improvement, but did not persist. The patient reports her headache is much worse with sitting up and is improved with lying down. The patient does report that she was told to come back if her headaches persist. The patient denies any fever, chills, nausea, vomiting, chest pain, difficulty breathing, slurred speech, extremity weakness, ataxia, or numbness. PAST MEDICAL HISTORY: Negative, apart from the preeclampsia with severe features resulting in a spontaneous 34 weeks iatrogenic delivery/gastric history and anxiety. PAST OBSTETRIC HISTORY: The patient has had four vaginal without complications prior to this one. PAST SURGICAL HISTORY: She has had an appendectomy. SOCIAL HISTORY: Denies drug, alcohol, tobacco use. MEDICATIONS: 1. Metoprolol 25 mg twice a day. 2. Tylenol No.3 every 4 hours as needed for pain. ALLERGIES: PROCARDIA : REFLEX marked TACHYCARDIA AND FACIAL NUMBNESS. CEPHALEXIN, RASH. PHYSICAL EXAMINATION: GENERAL: The patient's initial blood pressures down in the emergency room were in the 170s systolic range and 110s diastolic after being given 10 mg IV of hydralazine, blood pressures came down into the 150s and has been instituted on 200 mg t.i.d. of labetalol. In general, the patient is down in the emergency room, does not appear to be in any acute distress while lying down. However, she did report that she had a sudden headache with a surge in her blood pressure up to 180s. HEART: Had a regular rate and rhythm. There are no gallops, rubs, or murmurs. LUNGS: Clear to auscultation bilaterally. ABDOMEN: Soft and nontender. EXTREMITIES: Nontender, nonedematous. NEUROLOGIC: Cranial nerves 2 through 12 were intact bilaterally symmetrical. She had good upper and lower extremity strength and sensation. Her headache was exacerbated by sitting up into the wheelchair. DIAGNOSTIC DATA: CT scan of the head showed no evidence of any acute intracranial process. LABORATORY WORK: Showed a hemoglobin 12.1, hematocrit of 35.2, platelets of 269,000. INR is 0.9. A CMP significant for uric acid 6.7 with LDH 230. Urine shows a specific gravity of 1.038, 2+ protein, large blood, large white blood cells. ASSESSMENT AND PLAN: The patient is a 33-year-old female, day #8, status post a delivery for preeclampsia with severe features, presenting with what sounds like a spinal headache and severe range of pressures that are also seem to be attributing to her headaches. We have been able to get her blood pressure under control fairly easily with 10 mg of hydralazine IV, subsequently followed by 200 mg tablet of p.o. labetalol with plans for t.i.d. doses. We have consulted Anesthesiology to come and review the patient's history and see if she is eligible for a blood patch or other treatment for what sounds like a spinal headache. The patient will not be placed on magnesium at this time given her recent magnesium course and the ease of control of her blood pressures here. Of note, the patient has been since admission has received a blood patch by Anesthesia and got a tremendous results for improvement of her headache. Blood pressure continues to stay in the mild range. We will continue to watch her for the next 24 hours and should she continue to have controlled blood pressure on the labetalol 200 mg t.i.d., the patient will be eligible for discharge, tomorrow afternoon. Dr. Alexi Ramirez, her primary OB physician has been notified of the patient's admission and will be resuming care in the morning. Job ID: [id number] [facility]
[2018-05-24] MEDS: Ibuprofen 800 MG TAB PO PRN ×3 (04:22→20:27)
[2018-05-24] MEDS: HYDROcodone/Acetaminophen 7.5/325 mg Tablet PO PRN ×3 (09:57→22:16)
--- NOTE | 2018-05-24 14:41 | PRG ---
DATE OF SERVICE: 05/24/2018 SUBJECTIVE: The patient's headache has resolved. She does complain of some neck soreness and low back tenderness from her blood patch. However, she feels significantly better. OBJECTIVE: VITAL SIGNS: Blood pressure 142/79, temperature 98.3, pulse 62, respirations 20. HEART: Regular rate and rhythm. LUNGS: Clear. ABDOMEN: Soft. LABORATORY DATA: None. ASSESSMENT: 1. Spinal headaches. 2. Elevated blood pressure. 3. day #9. 4. Status post delivery with preeclampsia with severe features. PLAN: 1. We will observe today and possibly discharge this evening or tomorrow morning. 2. We will hold blood pressure medications for now. If blood pressures rise today, we will restart. We will continue to monitor. Job ID: [id number]
[2018-05-24] MEDS ORDERED: Polyethylene Glycol 3350 17 GM Packet PO SCH (23:30)
[2018-05-25] MEDS: HYDROcodone/Acetaminophen 7.5/325 mg Tablet PO PRN ×3 (05:30→21:08)
[2018-05-25] MEDS: Metoprolol Tartrate 50 MG TAB PO SCH ×2 (08:18→21:08)
[2018-05-25] MEDS ORDERED: Polyethylene Glycol 3350 17 GM Packet PO SCH (09:00)
[2018-05-25] MEDS: Preparation H HC 1% Cream 26 GM TUBE TOP SCH ×2 (09:20→21:08)
[2018-05-25] MEDS: Ibuprofen 800 MG TAB PO PRN (10:30)
[2018-05-25 21:41] VITALS: BP 139/96; TEMP 98.2
== END 2018-05-25 21:50 | disposition home or self-care (01) | DRG 776 ==
LOC: ERS 13:21 → 3SE 16:13
PROVIDERS: ADMIT Obstetrics & Gynecology; ATTEND Obstetrics & Gynecology
PROC: 3E0R3GC Introduction of Other Therapeutic Substance into Spinal Canal, Percutaneous Approach (ICD-10-PCS; principal; 2018-05-23)
DX: O89.4 Spinal and epidural anesthesia-induced headache during the puerperium (principal); Z90.49 Acquired absence of other specified parts of digestive tract; O10.93 Unspecified pre-existing hypertension complicating the puerperium; Z88.1 Allergy status to other antibiotic agents; Z88.8 Allergy status to other drugs, medicaments and biological substances
CPT/HCPCS: 36415; 70450; 80053; 81003; 81015; 82570; 83615; 84550; 85025; 85610; 93306; 96374; J0360; J1940; J2270; J2405

== ENCOUNTER 2018-08-13 10:30 | Observation (INO) | payer OTHER, SELFPAY ==
[2018-08-13 11:07] LABS: #Basophils 0.1 thou/uL (0.0-0.2); #Lymphocytes 2.5 thou/uL (1.20-3.40); #Monocytes 0.4 thou/uL (0.11-0.59); #Neutrophils 5.3 thou/uL (1.40-6.50); %Basophils 1.1 % (0.0-1.0); %Eosinophils 0.4 % (0.0-10.0); %Lymphocytes 29.8 % (21.0-51.0); %Monocytes 5.2 % (0.0-10.0); %Neutrophils 63.5 % (42.0-75.0); Hemoglobin 14.4 g/dL (12.0-16.0); Mean Corpuscular HGB CONC 33.9 g/dL (32.0-36.0); Mean Corpuscular Hemoglobin 29.7 pg (27.0-31.0); Mean Corpuscular Volume 87.6 fL (78.0-98.0); Mean Platelet Volume 8.4 fL (7.4-10.4); Platelet Count 219 thou/uL (130-400); RBC Distribution Width 13.1 % (11.5-14.5); Red Blood Cell (RBC) Count 4.84 mill/uL (4.20-5.40); White Blood Cell (WBC) Count 8.3 thou/uL (4.8-10.8)
[2018-08-13 11:10] LABS: Prothrombin Time 12.7 SEC (12.0-14.7)
[2018-08-13 11:14] LABS: BHCG - Serum Negative (NEGATIVE); Pregs Control Background? CLEAR/WHITE (CLR/WHITE); Pregs Control Bar Appear? YES (CONTROL BAR)
--- NOTE | 2018-08-13 11:15 | CT ---
FCT Brain WO Con: 08/13/2018 11:02 AM CLINICAL HISTORY: Stroke activation; history of right-sided weakness for one day with right-sided fac ial numbness. IMAGING TECHNIQUE: Multiple CT images were obtained of the brain without IV contrast. COMPARISON: CT of the brain dated May 23, 2018 and MR of the brain dated 05/26/2018 FINDINGS: Extra axial spaces: Within normal limits. Hemorrhage: None. Ventricular system: Normal in size and morphology for the patient's age. Basal cisterns: Normal. Cerebral parenchyma: Within normal limits. Midline shift: None. Cerebellum: Normal. Brainstem: Normal. OTHER: Calvarium: Normal. Vascular system: Normal. Visualized Paranasal sinuses: Clear. Visualized Orbits: Normal. Visualized upper cervical spine: Normal. Sella and skull base: Normal. IMPRESSION: No acute intracranial abnormality is evident. The patient's known small sellar and suprasellar mass i s not well-seen on the current CT evaluation. Findings called to Dr. Roland at 11:11 AM on 08/13/2018.
[2018-08-13] MEDS ORDERED: methylPREDNISolone Sod Succ/PF 125 MG/2 ML VIAL ONE (11:22)
[2018-08-13] MEDS ORDERED: diphenhydrAMINE 50 MG/ML VIAL ONE (11:22)
[2018-08-13] MEDS ORDERED: Famotidine/PF 20 mg/2ml Vial ONE (11:22)
[2018-08-13 11:24] LABS: ALT (SGPT) 22 U/L (8-55); AST (SGOT) 22 U/L (5-34); Albumin 4.6 g/dL (3.5-5.0); Alkaline Phosphatase 68 U/L (40-150); Anion Gap 13 mmol/L (10-20); BUN (Urea Nitrogen) 10 mg/dL (7.0-18.7); Calc. Creatinine Clearance 0 mL/min (70-130); Calcium 9.5 mg/dL (7.8-10.44); Carbon Dioxide 26 mmol/L (22-29); Chloride 106 mmol/L (98-107); Estimated GFR-MDRD Greater than 90; Globulin 3.1 g/dL (2.4-3.5); Glucose 102 mg/dL (70-105); Protein, Total 7.7 g/dL (6.0-8.3); Sodium 141 mmol/L (136-145)
--- NOTE | 2018-08-13 11:59 | CT ---
CT ANGIO OF HEAD AND NECK PERFORMED WITH INTRAVENOUS CONTRAST ENHANCEMENT WITH 3D RECONSTRUCTIONS: Date: 08/13/18 HISTORY: Patient states right side has been feeling weird with tremors. Weakness for 1 day. FINDINGS: CT ANGIO NECK: Lung apices are clear. The thyroid gland is unremarkable. No significant jugular chain lymphadenopath y. Parapharyngeal spaces are clear. Parotid and submandibular gland regions are normal. Angiographic portion of the study yielded a good examination. On the right side, the right common int ernal and external carotid arteries are all normal in appearance, and similar changes are seen on the left. No evidence of any significant stenosis by NASCET criteria. Vertebral arteries are codominant. CT ANGIO HEAD: The anterior and middle cerebral arteries and their branches appear patent. No signs of any thrombus. No aneurysm. [place] of [place] is incomplete. I do not see a definite right posterior communicator. T he vertebral artery and posterior cerebral arteries appear normal. IMPRESSION: Unremarkable CT angio of head and neck. Findings telephoned to Dr. Roland at 1150 hours. CODE CR. POS: JAZMIN
[2018-08-13] MEDS ORDERED: Aspirin Chewable 81 MG TAB ONE (12:24)
[2018-08-13 13:23] LABS: Amphetamine Not Detected (NotDetected); Barbiturates Screen Not Detected (NotDetected); Benzodiazepine Screen Not Detected (NotDetected); Cocaine Metabolite Screen Not Detected (NotDetected); Medtox Control Line Valid? VALID (VALID); Medtox Reader # READER 1; Methadone Not Detected (NotDetected); Methamphetamine Not Detected (NotDetected); Opiate Screen Not Detected (NotDetected); Oxycodone Screen Not Detected (NotDetected); Phencyclidine (PCP) Not Detected (NotDetected); THC/Cannabinoid Screen Not Detected (NotDetected); Tricyclic Screen Not Detected (NotDetected)
[2018-08-13 13:25] LABS: Pregnancy Test - Urine (BHCG) Negative (Negative); Pregu Control Background? CLEAR/WHITE (CLR/WHITE); Pregu Control Bar Appear? YES (CONTROL BAR); Specific Gravity 1.059 (1.002-1.036)
[2018-08-13 15:02] VITALS: BMI 23.2
[2018-08-13] MEDS ORDERED: Acetaminophen 325 MG TAB PO PRN (15:27)
[2018-08-13] MEDS ORDERED: ISOVUE-370 76%-LOCM 1 ML ONE (15:43)
[2018-08-13] MEDS ORDERED: Lorazepam 2 MG/ML VIAL SLOW IVP SCH (16:30)
[2018-08-13] MEDS ORDERED: Labetalol 100 MG TAB PO SCH ×2 (18:15→21:00)
--- NOTE | 2018-08-13 18:25 | CON ---
DATE OF CONSULTATION: 08/13/2018 TELEMEDICINE VISIT WITH TOM YOUNG CHIEF COMPLAINT: Numbness on the right side. HISTORY OF PRESENT ILLNESS: The patient is a 33-year-old lady, who was recently admitted in May for delivery and she had severe eclampsia and Neurology consult was called at that time for migraine headaches. The patient had an MRI at that time. She went home and she has been following with her [facility] for her hypertension. Yesterday, she felt numbness on the right side, she felt it was crippling. She was playing family game and her right hand was not functioning like it should. Her speech is good. She had some blurred vision in the right side of the eye. No swallowing problems. She is not on aspirin on a regular basis. The patient did not report any weakness on the right side and she did have some difficulty walking. PREVIOUS MEDICAL HISTORY: Pyelonephritis and recurrent UTI, she was hospitalized for the same. Recent eclampsia in May during and delivery. She also has persistent hypertension. She used to have anxiety as a teenager. PREVIOUS SURGICAL HISTORY: Appendectomy 10 years ago. SOCIAL HISTORY: She is a nonsmoker. She drinks occasional alcohol. 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 FAMILY HISTORY: Brother, 25, is healthy. Sister, 29, has back problems. She cannot walk well. She has four children. Her oldest daughter has type 1 diabetes and she is 14 years old. Rest of the kids are healthy. Her mother is 63, has diabetes, hypertension, cholesterol issues, and coronary artery disease, and she went through a coronary artery bypass graft. Her father was murdered at age 51. ALLERGIES: SHE HAS MULTIPLE MEDICATION ALLERGIES. ALLERGIES INCLUDE CEPHALEXIN , NIFEDIPINE, AND IODINE CONTRAST. REVIEW OF SYSTEMS: PULMONARY: Negative for shortness of breath or cough. CARDIAC: Negative for chest pain or palpitations. PSYCHIATRIC: Positive for remote anxiety. NEUROLOGIC: Positive for numbness and feeling strange. DERMATOLOGIC: Negative for rash. HEMATOLOGIC: Negative for bleeding diathesis or anemia. GI: Negative for diarrhea and bowel problems such as constipation or nausea. LABORATORY DATA: Her workup includes white count 8.3, hemoglobin 14.4, hematocrit 42.3, platelets 219. Chemistry; sodium 141, potassium 4, chloride 106, bicarb 26, BUN 10, creatinine 0.7, glucose 102. Liver functions are within normal limits. Urinalysis was negative. Urine tox screen is also negative. CT angiography was performed and she did not have any vaso-occlusive disease on CT angiogram, and on brain CT, there was no visible suprasellar mass that was reported in prior MRIs. PHYSICAL EXAMINATION: VITAL SIGNS: Temperature 98.2, pulse 80, respiratory rate 18, and blood pressure 134/90. GENERAL APPEARANCE: Well-built, well-nourished lady, who appears comfortable. Speech, she has pauses in her speech, but tends to speak normally. There was no dysarthria noted. She might have mild expressive aphasia. CHEST: Clear vesicular breathing. CARDIOVASCULAR: S1 and S2 heard. No murmurs. ABDOMEN: Soft and nontender. No organomegaly noted. NEUROLOGIC: Higher intellectual functions. The patient is oriented to time, place, and person. Cranial nerve examination, normal extraocular movements. Normal sensation of face. Pupils are 3 mm, reactive to light. Tongue midline. No atrophy noted. Normal elevation of palate. Normal hearing to finger rub. No facial asymmetry. Slightly decreased facial sensation on the right side. Motor examination, bulk normal, tone normal, strength 4/5 in the right lower extremity only, left was 5/5. Muscle groups tested were iliopsoas, hamstrings, quadriceps , ankle dorsiflexion, plantarflexion, deltoid, biceps, triceps, wrist extension and flexion, finger extension and flexion. Deep tendon reflexes 1+ throughout. Sensory exam, she had decreased sensation in the right arm and leg. Cerebellar, normal [id number] left, but [id number] was abnormal on the left side. IMPRESSION: The patient with history of numbness and lack of coordination of the right hand, but on exam, she has some difficulty with her speech, incoordination in the left lower extremity, mild weakness in the right lower extremity and decreased sensation in the right face, arm, and length. The pattern is not specific to one vascular distribution. CT angio is negative. Likely diagnosis is possible small-vessel ischemic stroke. TREATMENT RECOMMENDATIONS: I agree with aspirin and statin for stroke prophylaxis. Please complete her stroke workup including MRI brain, echocardiogram, and carotid Doppler. Please call Neurology if MRI is abnormal. Job ID: [id number] [facility]
[2018-08-13] MEDS ORDERED: ALPRAZolam 0.5 MG TAB PO PRN (18:40)
--- NOTE | 2018-08-14 00:10 | HP ---
PRIMARY CARE PHYSICIAN: Alexi Ramirez MD CHIEF COMPLAINT: Right-sided numbness and tingling, persistent chest pains. HISTORY OF PRESENT ILLNESS: This is a 33-year-old female patient of Dr. Alexi Ramirez's with recent history of normal vaginal delivery at term with a history of preeclampsia and persistent high blood pressure and tachycardia. The patient states that she had been under stress during her and then following her delivery due to the preeclampsia, the high blood pressure, history of panic attacks, history of depression. She was admitted in May 2018 several times for persistent headache and blurred vision. She underwent multiple evaluations due to the high blood pressure from preeclampsia and her headache. She had echocardiogram on May 25, 2018, a brain MRI on May 26, 2018, brain MRA on May 27, 2018, which did reveal possible abnormality in her sellar region. She delivered the baby without complications, but since the delivery has been under persistent stress with the and older teenagers at home as well. Here in the hospital, she admits for two weeks, having on and off tingling in both hands. The right hand developing some numbness and cramping. Last night, she was playing a game with her family when she noticed cramping in her hand and decided to go to the emergency department today for evaluation. She admits on and off episodes of left-sided chest pain. She thought in the past had been related to allergies, but she was not sure. No coughing. No shortness of breath. Her mother reports that there is some phlegm that she has been having. She states that her left chest wall feels inflamed at times. She mostly complains of changes in her right eye as far as her vision since May 2018 with the of the baby. States that her right eye vision is much more blurry than her left. She has poor vision in both eyes but much worse in the right eye since the delivery. She states that following the delivery, she did have a persistent post epidural headache and required a blood patch for helping to resolve the headache. She continues to have some neck pains on and off as well as heart racing. Overall, she has felt better with the labetalol for her blood pressure and heart rate until the past 2 weeks when she developed her tingling, numbness, and cramping in her hand and vision changes. In the emergency department, she had normal CT, normal CT angiogram, normal EKG, normal cardiac enzymes. She is now being admitted for further evaluation for possible abnormality in her MRI of her brain causing her persistent symptoms. Her family reports that her speech had changed in the emergency department. She had had clear speech and now she is having some difficulty finding words at times. PAST MEDICAL HISTORY: Hypertension, history of preeclampsia, history of anxiety and depression. MEDICATIONS: Include, 1. Labetalol 200 mg b.i.d. 2. vitamin 1 daily. ALLERGIES: TO CEPHALEXIN, NIFEDIPINE, AND IODINATED CONTRAST. PAST SURGICAL HISTORY: Appendectomy over 10 years ago. HISTORY: She is a G4, P4. SOCIAL HISTORY: She is single. The father of this recent lives in [place], but does not help with the baby at home. 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 Denies smoking. Rare alcohol. No other drug use. She does state that she has poor support at home. Her brother helps and [id number] helps as well. FAMILY HISTORY: Mother with diabetes, hypertension, and heart disease. Father with high cholesterol. No history of strokes. No history of cancers. REVIEW OF SYSTEMS: As per the history of present illness. GENERAL: She denies any recent fevers, chills, or recent illness. HEENT: Positive headache. Positive blurred vision in the right eye. Positive on and off allergic rhinitis. CARDIAC: On and off chest pains. No shortness of breath. Positive palpitations. PULMONARY: No cough. No hemoptysis. No shortness of breath. GI: No nausea, vomiting, abdominal pain, melena, hematochezia. : No dysuria or hematuria. NEUROLOGIC: As per the history of present illness. No seizures or syncope. PSYCHIATRIC: Positive history of depression, had side effects to the Zoloft in the past. MUSCULOSKELETAL: Positive right groin pain for the past several months, it comes and goes. PHYSICAL EXAMINATION: VITAL SIGNS: Temperature 98.2, pulse of 80, respirations 18, pulse ox 97% on room air, and blood pressure 134/90. Telemetry; heart rate can go up to 140 with her just walking in the room. GENERAL: She is awake and alert. No acute distress. She is resting comfortably. She has unsteady gait. Negative Romberg. HEENT: Mucosa is moist. NECK: Supple. No JVD, adenopathy, bruits. HEART: Regular rate and rhythm without murmurs. LUNGS: Clear bilaterally. ABDOMEN: Positive bowel sounds. Soft, nontender, and nondistended. EXTREMITIES: No clubbing, cyanosis, or edema. 2+ peripheral pulses bilaterally. NEUROLOGIC: Cranial nerves 2 through 12 are grossly intact. Sensation is intact, but decreased in her right hand. Pupils are equally round, react to light and accommodation. Extraocular muscles are intact. Peripheral vision is intact. Negative Romberg test. She does have a slow deliberate speech with some pressuring in her speech, but then periods of normal speech. No facial droop. LABORATORY DATA AND DIAGNOSTIC STUDIES: White blood cell count 8.3, hemoglobin and hematocrit 14.4 and 42.3, and platelets of 219. PT and PTT were normal. Chemistry was normal. BUN of 10, creatinine of 0.7, GFR over 90, glucose of 102, calcium 9.5. Troponin less than 0.01. test was negative. Urinalysis was negative. Drug screen was negative. Again CT of the brain was normal. CT angiogram of the neck and head was normal. EKG revealed normal sinus rhythm. ASSESSMENT AND PLAN: This is a 33-year-old female patient with nonspecific neurologic symptoms including dysarthria, numbness and tingling of her extremities, slow gait, as well as with abnormality on her MRI from her last admission and now being admitted for further evaluation. 1. Abnormal MRI finding. We will recheck MRI with and without contrast of her brain as well as with focus on the pituitary gland due to the sellar abnormality on her last MRI. 2. Nonspecific neurologic symptoms. Does not appear to be having cerebrovascular accident at this time, likely related to stress and possible conversion disorder. I had long discussion with the patient and family about antianxiety medications as well as counseling. They agree with providing more help and assistance. She declines starting any kind of antianxiety medicines including SSRIs, but we will give trial of p.r.n. benzodiazepines at this time. Job ID: [id number]
[2018-08-14] MEDS ORDERED: Lorazepam 2 MG/ML VIAL SLOW IVP SCH (07:00)
[2018-08-14] MEDS: Bupropion 150 MG SR TAB PO SCH (08:52)
[2018-08-14] MEDS ORDERED: Labetalol 100 MG TAB PO SCH (09:00)
[2018-08-14] MEDS ORDERED: Prenatal Vitamin 1 TAB PO SCH (09:00)
[2018-08-14 10:46] LABS: PTT 30.6 SEC (22.9-36.1)
[2018-08-14 10:47] LABS: Prothrombin Time 13.5 SEC (12.0-14.7)
[2018-08-14 10:51] LABS: D-Dimer Test Less than 0.27 *mcg/mL (0.27-0.43)
--- NOTE | 2018-08-14 10:51 | PRG ---
DATE OF SERVICE: 08/14/2018 SUBJECTIVE: The patient was admitted for a possible TIA versus conversion disorder secondary to extreme anxiety and stress. I talked with the patient this morning. She is coherent. Her speech is somewhat forced. She had a complete normal conversation. She is under extreme stress. She has to take care of her 4 kids, one is an infant. Her works in [place]. She also cares for her uncle with prostate cancer and another uncle with medical issues. She also is trying to plan for her daughter, which is scheduled in December. She also has to take care of her mother, who lives with her. OBJECTIVE: VITAL SIGNS: Temperature 97.7, pulse 77, respirations 16, pulse ox 98, and blood pressure 104/63. HEENT: Clear. HEART: Regular rate and rhythm. LUNGS: Clear. ABDOMEN: Soft. EXTREMITIES: No edema. Motor and sensory is normal bilaterally. Cranial nerves are all intact. LABORATORY DATA: All CBC and comprehensive normal. Urine is negative. Drug screen negative. CT angio, brain CT, and brain CTA are all negative. ASSESSMENT: 1. Altered mental status, rule out transient ischemic attack versus conversion disorder. 2. Depression under extreme stress. 3. with preeclampsia, placed on labetalol upon discharge. PLAN: 1. I had a long conversation about the patient's stressors. The patient needs to adjust her lifestyle. 2. We will start Wellbutrin SR 150 daily and then titrate to b.i.d. The patient did not tolerate SSRIs. 3. We will perform an echo per Dr. Nwe. Recent echo and brain MRI are unremarkable recently. 4. I discussed the patient's stressors. She needs to limit some of this activities. Also talked with her and he states that she is just overextending herself. 5. Thrombosis panel. 6. We will continue to follow. Job ID: [id number]
--- NOTE | 2018-08-14 11:53 | MRI ---
FBrain MRI with and without contrast History follow-up pituitary lesion Comparison 05/26/2018 TECHNIQUE: Brain MRI performed with and without intravenous gadolinium administration. Multi [facility], multiplanar imaging was performed, following pituitary protocol FINDINGS: Brain MRI: Calvarium: Normal T1 marrow signal intensity Midline brain parenchymal structures are unremarkable No parenchymal hemorrhage. No extra-axial hematoma. No midline shift. Basilar cisterns are patent Remodeling, age appropriate. Cortical ballard-white matter differentiation is preserved Ventricles and sulci are patent and symmetric Central arterial flow is maintained. Absent restricted diffusion No pathologic enhancement within brain parenchyma. Pituitary gland MRI: Redemonstration of a T2 hyperintense focus involving the anterior aspect of the pituitary gland. Ther e is associated peripheral enhancement. Currently, this lesion measures 0.5 cm cranial caudal by 0.4 cm mediolateral by 0.5 cm anterior posterior. Previously, this lesion measured 1.2 cm in the cranioca udal dimension. There is been interval decrease in size. Pituitary stalk and the posterior aspect pit uitary gland has appropriate signal intensity. IMPRESSION: 1. Slightly decreasing cystic lesion in the anterior pituitary. Gland which may represent a decreasin g cystic pituitary lesion. 1 year follow-up is recommended. 2. Brain volume is age appropriate. No pathologic enhancement in the brain.
[2018-08-14] MEDS: Acetaminophen 325 MG TAB PO PRN ×2 (13:52→21:05)
--- NOTE | 2018-08-14 18:01 | EKG ---
Test Reason : Blood Pressure : / mmHG Vent. Rate : 087 BPM Atrial Rate : 087 BPM P-R Int : 150 ms QRS Dur : 096 ms QT Int : 370 ms P-R-T Axes : 021 -12 031 degrees QTc Int : 445 ms Normal sinus rhythm Normal ECG When compared with ECG of 08-JAN-2003 00:25, RSR' pattern in V1 is no longer Present Confirmed by PATRICIA VAIL (2) on 08/14/2018 6:01:22 PM Referred By: Confirmed By:PATRICIA VAIL
[2018-08-15 07:56] VITALS: BP 131/77; TEMP 97.9
[2018-08-15] MEDS: Bupropion 150 MG SR TAB PO SCH (08:30)
[2018-08-15] MEDS: Acetaminophen 325 MG TAB PO PRN (08:33)
[2018-08-15 11:32] LABS: Cardiolipin IgA Ab 1.4 APL-U/mL (<14 Negative); Cardiolipin IgG Ab Less than 0.5 GPL-U/mL (<10 Negative); Cardiolipin IgM Ab 1.2 MPL-U/mL (<10 Negative); EliA APS New Method **** NEW METHOD ****
--- NOTE | 2018-08-15 12:22 | DIS ---
DATE OF ADMISSION: 08/13/2018 DATE OF DISCHARGE: 08/15/2018 DISCHARGE DIAGNOSES: 1. Altered mental status. 2. Conversion disorder. 3. Depression. 4. with preeclampsia. DISCHARGE MEDICATION: Wellbutrin 150 SR one p.o. b.i.d. FOLLOWUP: Follow up in 2 days. BRIEF HISTORY: This is a 33-year-old female, admitted by Dr. Bedolla for altered mental status. The patient was having slurred speech at the time. She was under extreme stress. She is having to take care of her uncle with prostate cancer and another ill uncle. She also has to take care of her children and her is working in [place] at this time. She also has to take care of her mother and is also preparing for her daughter. The patient came in complaining of visual changes as well as weakness in her extremities. HOSPITAL COURSE: The patient's neurologic exam is relatively normal. She does have good motor strength and sensory sensation bilaterally. She has no nausea, vomiting or chest pain. She complains of numbness of her lips and her upper extremities. She answers all questions appropriately. She converses appropriately. Her speech is just somewhat forced. It is not slurred. She has improved over several days. She is now ready for discharge. She will follow up in the office in 2 days. I told her she has to eliminate some of her responsibility. She is incapable of taking care of her uncles due to her own health issues. She has been started on Wellbutrin SR 150 p.o. b.i.d. She will start with one daily x2 weeks, then b.i.d. Her labetalol has been stopped. We will continue to follow this on an outpatient basis. White count 8.3, H and H of 14 and 42. Electrolytes normal. Creatinine 0.7. Troponin less than 0.010. test was negative. Brain MRI, cystic pituitary lesion was noted, which is smaller than previously seen on a prior MRI. One year followup was recommended. No other pathologic lesions present. Dr. England was consulted and she found no neurologic issues. CT angio, brain CT, and MRI were all relatively unremarkable. Job ID: [id number]
[2018-08-17 19:10] LABS: Activated Protein C Resistance 2.5 ratio (.)
[2018-08-18 15:37] LABS: Protein C Activity 126 % (78-152)
[2018-08-18 15:43] LABS: Factor VIII Test 176.9 % ACTIVE (56-157)
[2018-08-19 14:17] LABS: HEX PHOS LA Tube 1 56.7 SEC
[2018-08-19 14:20] LABS: HEX PHOS LA Tube 2 51.9 SEC; Hexagonal Phospholipid Neut 4.8 SEC (0-8.0)
== END 2018-08-15 09:18 | disposition home or self-care (01) ==
LOC: ERS 10:30 → 2SE 12:42
PROVIDERS: ADMIT Family Medicine; ATTEND Family Medicine
DX: F44.9 Dissociative and conversion disorder, unspecified (principal); F32.9 Major depressive disorder, single episode, unspecified; E23.6 Other disorders of pituitary gland; I10 Essential (primary) hypertension; R07.9 Chest pain, unspecified; R47.81 Slurred speech; R20.0 Anesthesia of skin; H53.8 Other visual disturbances; Z79.899 Other long term (current) drug therapy; Z88.1 Allergy status to other antibiotic agents; Z88.8 Allergy status to other drugs, medicaments and biological substances; Z91.041 Radiographic dye allergy status
CPT/HCPCS: 36415; 36416; 70450; 70496; 70498; 70553; 80053; 80306; 81025; 81240; 81241; 83090; 84484; 84703; 85025; 85240; 85300; 85303; 85305; 85307; 85379; 85598; 85610; 85730; 86147; 93005; 93010; 93306; 96374; 96375; 96376; G0378; J1200; J2060; J2930; Q9966; S0028

== ENCOUNTER 2019-06-01 | Emergency (ER) | payer OTHER, SELFPAY | END 2019-06-01 01:51 | disposition home or self-care (01) | LOC: ERS | DX: M79.631 Pain in right forearm (principal); M79.632 Pain in left forearm; M25.561 Pain in right knee; M25.562 Pain in left knee; H92.01 Otalgia, right ear; I10 Essential (primary) hypertension; F41.9 Anxiety disorder, unspecified | CPT/HCPCS: 99283 ==

== ENCOUNTER 2019-06-12 02:16 | Emergency (ER) | payer SELFPAY ==
[2019-06-12] MEDS ORDERED: Acetaminophen 500 MG TAB ONE (03:04)
== END 2019-06-12 03:05 | disposition home or self-care (01) ==
LOC: ERS 02:16
DX: J06.9 Acute upper respiratory infection, unspecified (principal); H92.02 Otalgia, left ear; I10 Essential (primary) hypertension; F41.9 Anxiety disorder, unspecified
CPT/HCPCS: 99283

== ENCOUNTER 2020-05-02 13:38 | Outpatient (CLI) | payer OTHER ==
--- NOTE | 2020-05-02 15:23 | MRI ---
Exam: MRI cervical spine without contrast HISTORY: Cervical dystonia. Neck pain with occasional numbness and tingling in the hands, x2 years. COMPARISON: None FINDINGS: Appropriate T1 marrow signal intensity of the cervical vertebra. Cervical spine vertebral body heigh t is maintained. No fracture. No significant STIR hyperintensity suggest ligamentous injury or vertebral body edema. Visualized brain parenchyma, cervicomedullary junction, cervical cord and the upper thoracic cord hav e a normal size and signal intensity C2-C3: No significant central canal stenosis or significant neural foraminal narrowing C3-C4: No significant central canal stenosis or significant neural foraminal narrowing C4-C5: No significant central canal stenosis or significant neural foraminal narrowing C5-C6: Minimal disc desiccation. Minimal broad-based disc bulge abuts the ventral epidural fat. No si gnificant central canal stenosis or significant neural foraminal narrowing C6-C7: No significant central canal stenosis or significant neural foraminal narrowing C7-T1: No significant central canal stenosis or significant neural foraminal narrowing. 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 IMPRESSION: No significant central canal stenosis or significant neural foraminal narrowing.
== END 2020-05-02 13:39 | disposition home or self-care (01) ==
LOC: BICMRI 13:38
PROVIDERS: ATTEND Psychiatry & Neurology Neurology
DX: G24.3 Spasmodic torticollis (principal)
CPT/HCPCS: 72141

== ENCOUNTER 2021-01-09 11:41 | Emergency (ER) | payer OTHER | END 2021-01-09 15:10 | disposition home or self-care (01) | LOC: ERS 11:41 | DX: R05 Cough (principal); Z20.822 Contact with and (suspected) exposure to COVID-19; I10 Essential (primary) hypertension | CPT/HCPCS: 71045 ==

== ENCOUNTER 2021-09-10 05:19 | Emergency (ER) | payer OTHER ==
[2021-09-10] MEDS ORDERED: Ketorolac Tromethamine 30 MG/ML VIAL ONE (06:27)
== END 2021-09-10 06:45 | disposition home or self-care (01) ==
LOC: ERS 05:19
DX: H81.13 Benign paroxysmal vertigo, bilateral (principal); M79.2 Neuralgia and neuritis, unspecified; I10 Essential (primary) hypertension
CPT/HCPCS: 96372; 99283; J1885

== ENCOUNTER 2023-03-07 14:39 | Emergency (ER) | payer OTHER, SELFPAY | END 2023-03-07 16:02 | disposition left against medical advice (07) | LOC: ERS 14:39 | DX: Z53.21 Procedure and treatment not carried out due to patient leaving prior to being seen by health care provider (principal) ==

== ENCOUNTER 2023-03-09 21:21 | Emergency (ER) | payer OTHER, SELFPAY ==
[2023-03-09 22:19] LABS: #Eosinphils 0.1 thou/uL (0.0-0.7); #Monocytes 0.5 thou/uL (0.11-0.59); #Neutrophils 3.7 thou/uL (1.40-6.50); %Basophils 0.4 % (0.0-1.0); %Eosinophils 1.5 % (0.0-10.0); %Lymphocytes 43.7 % (21.0-51.0); %Monocytes 6.4 % (0.0-10.0); %Neutrophils 47.7 % (42.0-75.0); Hematocrit 37.5 % (36.0-47.0); Hemoglobin 12.9 g/dL (12.0-16.0); Mean Corpuscular HGB CONC 34.4 g/dL (32.0-36.0); Mean Corpuscular Hemoglobin 30.6 pg (27.0-31.0); Mean Corpuscular Volume 89.1 fl (78.0-98.0); Mean Platelet Volume 10.7 fL (7.4-10.4); Platelet Count 257 10x3/uL (130-400); RBC Distribution Width 12.7 % (11.5-14.5); Red Blood Cell (RBC) Count 4.21 mill/uL (4.20-5.40); White Blood Cell (WBC) Count 7.8 10x3/uL (4.8-10.8)
[2023-03-09 22:42] LABS: ALT (SGPT) 13 U/L (8-55); AST (SGOT) 15 U/L (5-34); Albumin 4.4 g/dL (3.5-5.0); Alkaline Phosphatase 75 U/L (40-110); Anion Gap 15 mmol/L (10-20); BUN (Urea Nitrogen) 14 mg/dL (7.0-18.7); Bilirubin, Total 0.5 mg/dL (0.2-1.2); Calc. Creatinine Clearance 0 mL/min (70-130); Carbon Dioxide 26 mmol/L (22-29); Chloride 100 mmol/L (98-107); Estimated GFR 87; Globulin 2.7 g/dL (2.4-3.5); Glucose 144 mg/dL (70-105); Lipase 22 U/L (8-78); Potassium 3.5 mmol/L (3.5-5.1); Protein, Total 7.1 g/dL (6.0-8.3); Sodium 137 mmol/L (136-145)
[2023-03-10 00:16] LABS: Bilirubin Negative (Negative); Blood, Urine Trace (Negative); CAUTI Indications for Culture Pelvic or flank pain; Clarity Turbid (Clear); Glucose, Urine (Dipstick) 30 mg/dL (Negative); Ketone, Urine Negative (Negative); Leukocyte Negative Leu/uL (Negative); Nitrite Negative (Negative); Protein, Urine (Dipstick) Negative (Neg-Trace); Specific Gravity, Urine 1.019 (1.002-1.036); Squamous Epithelial 0-3 HPF (0-3); Urobilinogen Normal mg/dL (Less than 2); WBC/HPF 0-3 HPF (0-3)
[2023-03-10 00:17] LABS: Bacteria/HPF 1+ HPF (None Seen); Pregnancy Test - Urine (BHCG) Negative (Negative); Pregu Control Background? CLEAR/WHITE (CLR/WHITE); Pregu Control Bar Appear? YES (CONTROL BAR); Specific Gravity 1.019 (1.002-1.036); Urine Culture Reflex No No
[2023-03-10] MEDS ORDERED: Ciprofloxacin 500 MG TAB ONE (00:36)
[2023-03-10 12:29] LABS: Chlamydia by PCR, Vaginal Swab Not Detected (NotDetected); GC by PCR, Vaginal Swab Not Detected (NotDetected)
[2023-03-10 12:29] LABS: Chlam.trachomatis by PCR,Urine Not Detected (NotDetected); GC N.gonorrhoeae PCR,UrineVOID Not Detected (NotDetected)
== END 2023-03-10 00:40 | disposition home or self-care (01) ==
LOC: ERS 21:21
DX: Z11.3 Encounter for screening for infections with a predominantly sexual mode of transmission (principal); N89.8 Other specified noninflammatory disorders of vagina; I10 Essential (primary) hypertension
CPT/HCPCS: 36415; 80053; 81001; 81025; 83690; 85025; 87480; 87491; 87510; 87591; 87660; 99284

== ENCOUNTER 2024-05-14 11:47 | Emergency (ER) | payer MEDICAID, SELFPAY ==
[2024-05-14 12:51] LABS: #Basophils 0.03 10x3/uL (0.0-0.2); %Basophils 0.4 % (0.0-1.0); %Eosinophils 1.4 % (0.0-10.0); %Monocytes 6.7 % (0.0-10.0); %Neutrophils 66.2 % (42.0-75.0); Hematocrit 38.2 % (36.0-47.0); Hemoglobin 13.4 g/dL (12.0-16.0); Mean Corpuscular HGB CONC 35.1 g/dL (32.0-36.0); Mean Corpuscular Hemoglobin 29.9 pg (27.0-31.0); Mean Corpuscular Volume 85.3 fL (78.0-98.0); Mean Platelet Volume 10.6 fL (7.4-10.4); Platelet Count 287 10x3/uL (130-400); RBC Distribution Width 13.2 % (11.5-14.5); Red Blood Cell (RBC) Count 4.48 mill/uL (4.20-5.40)
[2024-05-14 13:02] LABS: BHCG - Serum Negative (NEGATIVE); Pregs Control Background? CLEAR/WHITE (CLR/WHITE); Pregs Control Bar Appear? YES (CONTROL BAR)
[2024-05-14 13:11] LABS: ALT (SGPT) 11 U/L (8-55); AST (SGOT) 17 U/L (5-34); Albumin 4.1 g/dL (3.5-5.0); Alkaline Phosphatase 80 U/L (40-110); Anion Gap 16 mmol/L (10-20); BUN (Urea Nitrogen) 15 mg/dL (7.0-18.7); Bilirubin, Total 0.6 mg/dL (0.2-1.2); Calc. Creatinine Clearance 0 mL/min (70-130); Carbon Dioxide 25 mmol/L (22-29); Chloride 104 mmol/L (98-107); Estimated GFR 113; Globulin 3.4 g/dL (2.4-3.5); Glucose 99 mg/dL (70-105); Potassium 3.5 mmol/L (3.5-5.1); Protein, Total 7.5 g/dL (6.0-8.3); Sodium 141 mmol/L (136-145)
[2024-05-14 13:53] LABS: Troponin I 0.023 ng/mL (< 0.028)
[2024-05-14] MEDS ORDERED: diphenhydrAMINE 50 MG/ML VIAL ONE (15:04)
[2024-05-14] MEDS ORDERED: methylPREDNISolone Sod Succ 40 MG VIAL ONE (15:05)
[2024-05-14] MEDS ORDERED: Famotidine/PF 20 mg/2ml Vial ONE (15:05)
== END 2024-05-14 17:04 | disposition home or self-care (01) ==
LOC: ERS 11:47
DX: B34.9 Viral infection, unspecified (principal); I10 Essential (primary) hypertension
CPT/HCPCS: 36415; 71275; 80053; 84484; 84703; 85025; 87428; 93005; 96374; 96375; J1200; J2919; J3490

== ENCOUNTER 2024-05-31 23:45 | Emergency (ER) | payer MEDICAID ==
[2024-06-01 00:21] LABS: Bacteria/HPF 3+ HPF (None Seen); Bilirubin Negative (Negative); Blood, Urine 1+ (Negative); CAUTI Indications for Culture Fever or rigors; Clarity Turbid (Clear); Glucose, Urine (Dipstick) Normal (Negative); Ketone, Urine Negative (Negative); Leukocyte 500 Leu/uL (Negative); Nitrite Negative (Negative); Protein, Urine (Dipstick) 20 mg/dL (Neg-Trace); Specific Gravity, Urine 1.018 (1.002-1.036); Urobilinogen Normal mg/dL (Less than 2); WBC/HPF Greater than 50 HPF (0-3); pH, Urine 6.5 (5.0-9.0)
[2024-06-01 00:22] LABS: Pregnancy Test - Urine (BHCG) Negative (Negative); Pregu Control Background? CLEAR/WHITE (CLR/WHITE); Pregu Control Bar Appear? YES (CONTROL BAR); Specific Gravity 1.018 (1.002-1.036)
[2024-06-01 00:23] LABS: Urine Culture Reflex Yes Yes
[2024-06-01 00:45] LABS: #Basophils Less than 0.03 10x3/uL (0.0-0.2); %Basophils 0.3 % (0.0-1.0); %Eosinophils 0.4 % (0.0-10.0); %Lymphocytes 7.8 % (21.0-51.0); %Monocytes 6.3 % (0.0-10.0); %Neutrophils 84.8 % (42.0-75.0); Hematocrit 37.4 % (36.0-47.0); Hemoglobin 12.9 g/dL (12.0-16.0); Mean Corpuscular HGB CONC 34.5 g/dL (32.0-36.0); Mean Corpuscular Hemoglobin 29.3 pg (27.0-31.0); Mean Corpuscular Volume 84.8 fL (78.0-98.0); Mean Platelet Volume 10.8 fL (7.4-10.4); Platelet Count 191 10x3/uL (130-400); RBC Distribution Width 13.2 % (11.5-14.5); Red Blood Cell (RBC) Count 4.41 mill/uL (4.20-5.40)
[2024-06-01 00:59] LABS: ALT (SGPT) 11 U/L (8-55); AST (SGOT) 17 U/L (5-34); Alkaline Phosphatase 73 U/L (40-110); Anion Gap 13 mmol/L (10-20); BUN (Urea Nitrogen) 12 mg/dL (7.0-18.7); Bilirubin, Total 0.8 mg/dL (0.2-1.2); Calc. Creatinine Clearance 0 mL/min (70-130); Carbon Dioxide 22 mmol/L (22-29); Chloride 104 mmol/L (98-107); Estimated GFR 104; Globulin 3.7 g/dL (2.4-3.5); Glucose 99 mg/dL (70-105); Potassium 3.3 mmol/L (3.5-5.1); Protein, Total 7.7 g/dL (6.0-8.3); Sodium 136 mmol/L (136-145)
[2024-06-01] MEDS ORDERED: Acetaminophen 500 MG TAB ONE (01:18)
[2024-06-01] MEDS ORDERED: Ondansetron PF 4 MG/2 ML Vial ONE (01:18)
[2024-06-01] MEDS ORDERED: Ketorolac Tromethamine 30 MG (1 mL) VIAL ONE (01:18)
[2024-06-01] MEDS ORDERED: Acetaminophen 650 MG/20.3 ML UDCUP ONE (01:27)
== END 2024-06-01 04:02 | disposition home or self-care (01) ==
LOC: ERS 23:45
DX: J10.1 Influenza due to other identified influenza virus with other respiratory manifestations (principal); N39.0 Urinary tract infection, site not specified; I10 Essential (primary) hypertension
CPT/HCPCS: 71045; 80053; 81001; 81025; 84443; 85025; 87077; 87086; 87186; 87428; 93005; 96361; 96374; 96375; J1885; J2405

== ENCOUNTER 2025-01-17 09:56 | Emergency (ER) | payer MEDICAID, SELFPAY ==
[2025-01-17 10:55] LABS: Pregnancy Test - Urine (BHCG) Negative (Negative); Pregu Control Background? CLEAR/WHITE (CLR/WHITE); Pregu Control Bar Appear? YES (CONTROL BAR)
[2025-01-17 11:04] LABS: CAUTI Indications for Culture Pelvic or flank pain; Glucose, Urine (Dipstick) Normal (Negative); Leukocyte 250 Leu/uL (Negative); Protein, Urine (Dipstick) 10 mg/dL (Neg-Trace); Specific Gravity, Urine 1.019 (1.002-1.036); WBC/HPF 21-50 HPF (0-3)
[2025-01-17 11:09] LABS: Bacteria/HPF 1+ HPF (None Seen)
[2025-01-17 11:10] LABS: Urine Culture Reflex Yes Yes
[2025-01-17] MEDS ORDERED: Azithromycin 250 MG TAB ONE (13:30)
[2025-01-18 12:06] LABS: Chlamydia by PCR, Vaginal Swab Not Detected (NotDetected); GC by PCR, Vaginal Swab Not Detected (NotDetected)
== END 2025-01-17 13:50 | disposition home or self-care (01) ==
LOC: ERS 09:56
DX: N39.0 Urinary tract infection, site not specified (principal); N76.0 Acute vaginitis; I10 Essential (primary) hypertension
CPT/HCPCS: 81001; 81025; 87077; 87086; 87480; 87491; 87510; 87591; 87660; 99283

== ENCOUNTER 2025-03-07 08:16 | Emergency (ER) | payer MEDICAID ==
[2025-03-07] MEDS ORDERED: Mag-Al 1200 mg/1200 mg/30 ML UDCUP ONE (09:04)
[2025-03-07] MEDS ORDERED: Lidocaine Viscous Sol 2% 15 ml UD Cup ONE (09:04)
[2025-03-07 09:33] LABS: #Basophils Less than 0.03 10x3/uL (0.0-0.2); #Eosinophils 0.03 10x3/uL (0.0-0.7); #Monocytes 0.28 10x3/uL (0.11-0.59); #Neutrophils 4.78 10x3/uL (1.40-6.50); %Basophils 0.3 % (0.0-1.0); %Eosinophils 0.5 % (0.0-10.0); %Lymphocytes 16.2 % (21.0-51.0); %Monocytes 4.6 % (0.0-10.0); %Neutrophils 78.1 % (42.0-75.0); Hematocrit 41.7 % (36.0-47.0); Hemoglobin 13.7 g/dL (12.0-16.0); Mean Corpuscular Hemoglobin 28.1 pg (27.0-31.0); Mean Corpuscular Volume 85.5 fL (78.0-98.0); Platelet Count 244 10x3/uL (130-400); Red Blood Cell (RBC) Count 4.88 mill/uL (4.20-5.40); White Blood Cell (WBC) Count 6.12 10x3/uL (4.8-10.8)
[2025-03-07 09:44] LABS: BHCG - Serum Negative (NEGATIVE); Pregs Control Background? CLEAR/WHITE (CLR/WHITE); Pregs Control Bar Appear? YES (CONTROL BAR)
[2025-03-07 09:52] LABS: ALT (SGPT) 10 U/L (Less than 34); AST (SGOT) 19 U/L (11-34); Albumin 3.8 g/dL (3.1-4.5); Alkaline Phosphatase 80 U/L (40-110); Anion Gap 16 mmol/L (10-20); BUN (Urea Nitrogen) 14 mg/dL (7.0-18.7); Bilirubin, Total 0.9 mg/dL (0.3-1.2); Calc. Creatinine Clearance 0 mL/min (70-130); Calcium 8.7 mg/dL (7.8-10.44); Carbon Dioxide 25 mmol/L (22-29); Chloride 103 mmol/L (98-107); Globulin 3.1 g/dL (2.4-3.5); Glucose 94 mg/dL (70-105); Lipase 22 U/L (8-78); Potassium 3.6 mmol/L (3.5-5.1); Sodium 140 mmol/L (136-145)
== END 2025-03-07 10:52 | disposition home or self-care (01) ==
LOC: ERS 08:16
DX: K29.00 Acute gastritis without bleeding (principal); I10 Essential (primary) hypertension
CPT/HCPCS: 80053; 83690; 84484; 84703; 85025; 87428; 93005; 99284; Q0162